=== PATIENT | female | born 1995 | race Two or more races ===

== ENCOUNTER 2025-01-25 16:45 | Emergency (ER) | payer MEDICAID, OTHER ==
[~2025-01-25] VITALS: Ht 152.4 cm; Wt 88.0 kg
--- NOTE | 2025-01-25 18:06 | ED.PDOC ---
HPI (NEURO) HPI Comments This is a 29 year old female presenting to the ED with chief complaint of headache. Patient reports that she has been experiencing a headache to the back of her head with associated nausea, vomiting, and eye pain since this morning. Patient relays that she was normal yesterday. Patient denies any abdominal pain, syncope, SOB, chest pain, dizziness, or fever. Chief Complaint: Nausea/Vomiting Time Seen by MD: 18:02 Primary Care Provider: [facility] Reviewed Notes: Nurses Notes, Medications, Allergies Information Source: Patient Mode of Arrival: Ambulatory Severity: Moderate Headache Severity: Moderate Timing: Hours Duration: Since onset Prehospital treatment: None Headache Quality: Aching Headache Location: Occipital Onset: At rest Circumstances: Spontaneous Associated Signs and Symptoms: Headache, Nausea, Vomiting Past Medical History PAST MEDICAL HISTORY: Denies Surgical History: Denies all surgeries GERMINATION TESTING MANAGER History: No Pertinent GERMINATION TESTING MANAGER History Family History Family History: Reviewed,noncontributory to illness Social History Smoker: Non-Smoker Alcohol: Denies ETOH Use Drugs: Denies Drug Use Lives In: Home Constitutional: denies: chills, diaphoresis, fatigue, fever, malaise, sweats, weakness, others EENTM: reports: eye pain; denies: blurred vision, double vision, ear bleeding, ear discharge, ear drainage, ear pain, ear ringing, eye redness, hearing loss, mouth pain, mouth swelling, nasal discharge, nose bleeding, nose congestion, nose pain, photophobia, tearing, throat pain, throat swelling, voice changes, others Respiratory: denies: cough, hemoptysis, orthopnea, SOB at rest, shortness of breath, SOB with excertion, stridor, wheezing, others Cardiovascular: denies: chest pain, dizzy spells, diaphoresis, Dyspnea on exertion, edema, irregular heart beat, left arm pain, lightheadedness, palpitations, PND, syncope, others Gastrointestinal: reports: nausea, vomiting; denies: abdomen distended, abdominal pain, blood streaked bowels, constipated, diarrhea, dysphagia, difficulty swallowing, hematemesis, melena, poor appetite, poor fluid intake, rectal bleeding, rectal pain, others Genitourinary: denies: abnormal vagina bleeding, burning, dyspareunia, dysuria, flank pain, frequency, hematuria, incontinence, pain, , vagina discharge, urgency, others Neurological: reports: headache; denies: dizziness, fainting, left sided numbness, left sided weakness, numbness, paresthesia, pre-existing deficit, right sided numbness, right sided weakness, seizure, speech problems, tingling, tremors, weakness, others Musculoskeletal: denies: back pain, gout, joint pain, joint swelling, muscle pain, muscle stiffness, neck pain, others Integumetry: denies: bruises, change in color, change in hair/nails, dryness, laceration, lesions, lumps, rash, wounds, others Allergic/Immunocompromised: denies: Difficulty Healing, Frequent Infections, Hives, Itching, others Hematologic/Lymphatic: denies: anemia, blood clots, easy bleeding, easy bruising, swollen glands, others Endocrine: denies: excessive hunger, excessive sweating, excessive thirst, excessive urination, flushing, intolerance to cold, intolerance to heat, unexplained weight gain, unexplained weight loss, others Psychiatric: denies: anxiety, bipolar disorder, depression, hopeless, panic disorder, schizophrenia, sleepless, suicidal, others All Other Systems: Reviewed and Negative Physical Exam General Appearance: Moderate Distress, Normal HEENT: Normal ENT Inspection, PERRL/EOMI, Other (Patient with ophthalmic migraine headache) Neck: Full Range of Motion, Non-Tender, Normal, Normal Inspection Respiratory: Chest Non-Tender, Lungs Clear, No Accessory Muscle Use, No Respiratory Distress, Normal Breath Sounds Cardiovascular: No Edema, No JVD, No Murmur, No Gallop, Normal Peripheral Pulses, Regular Rate/Rhythm Breast Exam: Deferred Gastrointestinal: No Organomegaly, Non Tender, No Pulsatile Mass, Normal Bowel Sounds, Soft Genitalia: Deferred Pelvic: Deferred Rectal: Deferred Extremities: No calf tenderness, Normal capillary refill, Normal inspection, Normal range of motion, Non-tender, No pedal edema Neurologic: Alert, warehouse incentive selector II-XII nml as Tested, Headache, No Motor Deficits, Normal Affect, Normal Mood, No Sensory Deficits Cerebellar Function: Normal Reflexes: Normal Skin: Dry, Normal Color, Warm Peripheral Pulses: 1+ carotid (R), 1+ carotid (L) Lymphatic: No Adenopathy Was a procedure done? Was a procedure done?: No Differential Diagnosis (SZ) Seizure: Mass Lesion CVA: Mass Lesion General Weakness: Dehydration, Electrolyte imbalance, Hypotension, Hypovolemia Headache: Migraine X-Ray, Labs, Meds, VS Vital Signs Date Time Temp Pulse Resp B/P (MAP) Pulse Ox O2 Delivery O2 Flow Rate FiO2 01/25/25 21:05 Room Air* 0 21 01/25/25 20:07 72 18 100 Room Air 01/25/25 19:55 98.2 72 18 138/94 (109) 100 98.2 01/25/25 17:15 98.3 65 18 141/61 (87) 100 98.3 Current Medications Medications (Trade) Dose Ordered Sig/Tabitha Route Start Time Stop Time Status Last Admin Ketorolac Tromethamine (Toradol Injection) 30 mg ONCE ONCE IV 01/25/25 18:00 01/25/25 18:01 DC 01/25/25 19:46 Metoclopramide HCl (Reglan Injection) 10 mg ONCE ONCE IV 01/25/25 18:00 01/25/25 18:01 DC 01/25/25 19:45 Sodium Chloride 1,000 ml @ 250 mls/hr Q4H ONCE IV 01/25/25 18:00 01/25/25 21:08 DC 01/25/25 19:44 X-Ray, Labs, Meds, VS Comment Patient came in with migraine headache After hydration and medication patient feels much better She will be discharged home to follow up with her PCP Time of 1ST Reevaluation: 19:02 Reevaluation 1ST: Unchanged Patient Education/Counseling: Diagnosis, Treatment Family Education/Counseling: No Family Present Departure 1 Departure Time of Disposition: 20:30 Impression: Primary Impression: Migraine headache without aura Qualified Codes: G43.009 - Migraine without aura, not intractable, without status migrainosus Disposition: 01 HOME / SELF CARE / HOMELESS Condition: Fair Additional Instructions: Go home and go to bed and right relax e-Prescriptions Acetaminophen (Acetaminophen Extra Stren) 500 Mg Tab 500 MG PO TID for 5 Days, #15 TAB Prov: TAYLOR WILSON MD 01/25/25 Metoclopramide Hcl (Reglan) 10 Mg Tab 10 MG PO BID for 5 Days, #10 TAB Prov: TAYLOR WILSON MD 01/25/25 Naproxen (Naproxen) 375 Mg Tab 375 MG PO TID for 5 Days, #15 TAB Prov: TAYLOR WILSON MD 01/25/25 Discharged With: Self Critical Care Note Critical Care Time?: No Stability Stability form required: No Heart Score Heart Score: Heart Score Response (Comments) Value History N/A 0 EKG N/A 0 Age <45 0 Risk Factors No known risk factors 0 Troponin N/A 0 Total 0 I personally scribed for TAYLOR WILSON MD ([email or web address]) on 01/25/25 at 18:06. Electronically submitted by Wali Mark ([email or web address]). TAYLOR WILSON MD Jan 25, 2025 18:06
--- NOTE | 2025-01-25 19:10 | DVH ---
CT HEAD WITHOUT CONTRAST INDICATION: Severe sudden headache EXAM DATE: 01/25/2025 06:20 PM COMPARISON: None RADIATION DOSE: CTDIvol: 53.99 mGy, DLP: 971.8 mGy*cm PROCEDURE: CT scans of the head were obtained from the vertex to the skull base. Sagittal and coronal reconstructions were provided. All CT scans at this medical facility are performed using dose modulation techniques as appropriate t o a performed exam including the following: Automated exposure control was utilized; adjustment of th e MA and/or KV according to patient size; and use of iterative reconstruction technique. FINDINGS: Evaluation is mildly degraded by motion artifact. The cerebral parenchyma appears to be normal configuration and attenuation. The ventricles, cisterns , and sulci appear age-appropriate. There is no evidence for acute territorial infarct, hemorrhage, or mass effect. The orbits are normal. The visualized paranasal sinuses and mastoid air cells are clear. Prior suboc cipital craniotomy. The soft tissues and osseous structures appear otherwise within normal limits. IMPRESSION: 1. No acute territorial infarct, intracranial hemorrhage, or mass effect. If clinical symptoms persis t, MRI may be beneficial in further evaluation.
[2025-01-25] MEDS: SODIUM CHLORIDE 0.9% 1,000 ML IV ONE (19:44)
[2025-01-25] MEDS: METOCLOPRAMIDE HCL 5MG/ml INJ 2ml VIAL IV ONE (19:45)
[2025-01-25] MEDS: KETOROLAC TROMETH 30 MG/ML 1ML VIAL IV ONE (19:46)
[2025-01-25 19:55] VITALS: BP 138/94; TEMP 98.2
[2025-01-25 20:07] VITALS: PULSE 72; RESP 18; O2SAT 100
[2025-01-25] MEDS ORDERED: ACET-6 PO (20:28)
[2025-01-25] MEDS ORDERED: NAPR-957 PO (20:28)
[2025-01-25] MEDS ORDERED: METO-281 PO (20:28)
== END 2025-01-25 21:07 | disposition home or self-care (01) ==
LOC: ER 16:45 → EEVIPCON 16:45 → ER 21:07
DX: G43.009 Migraine without aura, not intractable, without status migrainosus (principal)
CPT/HCPCS: 70450; 96361; 96374; 96375; 99285; J1885; J2765; J7030

== ENCOUNTER 2025-02-12 02:59 | Inpatient (IN) | payer MEDICAID ==
[~2025-02-12] VITALS: Ht 152.4 cm; Wt 89.0 kg
[~2025-02-12 02:59] MED LIST: ACET-6 PO; METO-281 PO; NAPR-957 PO
--- NOTE | 2025-02-12 03:54 | ED.PDOC ---
GI ASSESSMENT HPI Comments A 29 year-old female presents to the ED with a chief complaint of constant epigastric abdominal pain with associated N/D as of yesterday. Patient states abdominal pain was intermittent as of X2 months ago, but came to the ED upon constant and worsening symptoms. Patient states pain is exacerbated with eating, associated with R abdominal "burning" sensation, with no associated relieving factors. Patient reports coming to the ED 1 month ago for emesis of "acid" but states she was not given proper evaluation or treatment. Patient has no further complaints at this time and otherwise denies emesis, hematemesis, dysuria, dizziness, migraine, fever, or chills. Chief Complaint: Abdominal Pain Time Seen by MD: 03:20 Primary Care Provider: [facility] Reviewed Notes: Medications, Allergies Allergies: Coded Allergies: NO KNOWN ALLERGIES (Unverified , 02/12/25) Home Meds Active Scripts Sulfamethoxazole W/Trimethopri (Bactrim Ds Tablet) 1 Tab Tb, 1 TAB PO BID for 7 Days, #14 TAB Prov:LEANA ESTRADA MD 02/12/25 Dicyclomine Hcl (BENTYL CAPSULE) 10 Mg Cp, 1 CAP PO Q6HPRN for 60 Days, #100 CAP 3 Refills Prov:LEANA ESTRADA MD 02/12/25 Acetaminophen (Acetaminophen Extra Stren) 500 Mg Tab, 500 MG PO TID for 5 Days, #15 TAB Prov:TAYLOR WILSON MD 01/25/25 Metoclopramide Hcl (Reglan) 10 Mg Tab, 10 MG PO BID for 5 Days, #10 TAB Prov:TAYLOR WILSON MD 01/25/25 Naproxen (Naproxen) 375 Mg Tab, 375 MG PO TID for 5 Days, #15 TAB Prov:TAYLOR WILSON MD 01/25/25 Information Source: Patient Mode of Arrival: Ambulatory Timing: Days Duration: Since onset Quality: Burning Severity: Moderate Pain Location: Epigastric Associated sign and symptoms: Nausea, Diarrhea Past Medical History PAST MEDICAL HISTORY: Denies Surgical History: Denies all surgeries CARE CONSULTANT History: No Pertinent CARE CONSULTANT History Family History Family History: Reviewed,noncontributory to illness Social History Smoker: Non-Smoker Alcohol: Denies ETOH Use Drugs: Denies Drug Use Lives In: Home Constitutional: denies: chills, diaphoresis, fatigue, fever, malaise, sweats, weakness, others EENTM: denies: blurred vision, double vision, ear bleeding, ear discharge, ear drainage, ear pain, ear ringing, eye pain, eye redness, hearing loss, mouth pain, mouth swelling, nasal discharge, nose bleeding, nose congestion, nose pain, photophobia, tearing, throat pain, throat swelling, voice changes, others Respiratory: denies: cough, hemoptysis, orthopnea, SOB at rest, shortness of breath, SOB with excertion, stridor, wheezing, others Cardiovascular: denies: chest pain, dizzy spells, diaphoresis, Dyspnea on exertion, edema, irregular heart beat, left arm pain, lightheadedness, palpitations, PND, syncope, others Gastrointestinal: reports: abdominal pain, nausea, vomiting; denies: abdomen distended, blood streaked bowels, constipated, diarrhea, dysphagia, difficulty swallowing, hematemesis, melena, poor appetite, poor fluid intake, rectal bleeding, rectal pain, others Genitourinary: denies: abnormal vagina bleeding, burning, dyspareunia, dysuria, flank pain, frequency, hematuria, incontinence, pain, , vagina discharge, urgency, others Neurological: denies: dizziness, fainting, headache, left sided numbness, left sided weakness, numbness, paresthesia, pre-existing deficit, right sided numbness, right sided weakness, seizure, speech problems, tingling, tremors, weakness, others Musculoskeletal: denies: back pain, gout, joint pain, joint swelling, muscle pa in, muscle stiffness, neck pain, others Integumetry: denies: bruises, change in color, change in hair/nails, dryness, laceration, lesions, lumps, rash, wounds, others Allergic/Immunocompromised: denies: Difficulty Healing, Frequent Infections, Hives, Itching, others Hematologic/Lymphatic: denies: anemia, blood clots, easy bleeding, easy bruising, swollen glands, others Endocrine: denies: excessive hunger, excessive sweating, excessive thirst, excessive urination, flushing, intolerance to cold, intolerance to heat, unexplained weight gain, unexplained weight loss, others Psychiatric: denies: anxiety, bipolar disorder, depression, hopeless, panic disorder, schizophrenia, sleepless, suicidal, others All Other Systems: Reviewed and Negative Physical Exam General Appearance: Mild Distress, Obese HEENT: Normal ENT Inspection, Pharynx Normal, TMs Normal Neck: Full Range of Motion, Non-Tender, Normal, Normal Inspection Respiratory: Chest Non-Tender, Lungs Clear, No Accessory Muscle Use, No Respiratory Distress, Normal Breath Sounds Cardiovascular: No Edema, No JVD, No Murmur, No Gallop, Normal Peripheral Pulses, Regular Rate/Rhythm Breast Exam: Deferred Gastrointestinal: No Organomegaly, Non Tender, No Pulsatile Mass, Normal Bowel Sounds, Soft Genitalia: Deferred Pelvic: Deferred Rectal: Deferred Extremities: No calf tenderness, Normal capillary refill, Normal inspection, Normal range of motion, Non-tender, No pedal edema Musculoskeletal : Apperance: Normal Neurologic: Alert, trouble operator II-XII nml as Tested, No Motor Deficits, Normal Affect, Normal Mood, No Sensory Deficits Cerebellar Function: Normal Reflexes: Normal Skin: Dry, Normal Color, Warm Lymphatic: No Adenopathy Was a procedure done? Was a procedure done?: No GI differential Dx Differential Diagnosis: Constipation, Gastroenteritis, Inflammatory BD, UTI, Bacterial, Parasitic, Viral X-Ray, Labs, Meds, VS Vital Signs Date Time Temp Pulse Resp B/P (MAP) Pulse Ox O2 Delivery O2 Flow Rate FiO2 02/12/25 03:15 98.9 68 14 127/86 (100) 98 98.9 Lab Test 02/12/25 04:06 02/12/25 03:44 Range/Units Urine Color Yellow Yellow Urine Clarity Clear Clear Urine pH 6.0 5.0-9.0 Urine Specific [place] 1.026 1.001-1.035 Urine Protein Negative Negative Urine Ketones Negative Negative Urine Blood 3+ H Negative /uL Urine Nitrite Negative Negative Urine Bilirubin Negative Negative Urine Urobilinogen Normal Negative mg/dL Urine Leukocyte Esterase 1+ Negative /uL Urine RBC 50 0 - 4 /hpf Urine Microscopic WBC 3 0-5 /HPF Urine Squamous Epithelial Cells Few <5 /hpf Urine Bacteria None seen None Seen /hpf Urine Mucus Few None Seen Urine Glucose Normal Normal mg/dL Urine Test Negative Negative White Blood Count 7.7 4.4-10.8 10^3/uL Red Blood Count 4.80 4.0-5.20 10^6/uL Hemoglobin 13.6 12.2-16.2 g/dL Hematocrit 40.0 36.0-46.0 % Mean Corpuscular Volume 83.3 80.0-100.0 fL Mean Corpuscular Hemoglobin 28.2 28.0-32.0 pg Mean Corpuscular Hemoglobin Concent 33.9 32.0-36.0 g/dL Red Cell Distribution Width 13.4 11.8-14.3 % Platelet Count 225 140-450 10^3/uL Mean Platelet Volume 9.8 6.9-10.8 fL Neutrophils (%) (Auto) 61.9 37.0-80.0 % Lymphocytes (%) (Auto) 31.2 10.0-50.0 % Monocytes (%) (Auto) 4.7 0.0-12.0 % Eosinophils (%) (Auto) 1.7 0.0-7.0 % Basophils (%) (Auto) 0.5 0.0-2.0 % Neutrophils # (Auto) 4.8 1.6-8.6 10 ^3/uL Lymphocytes # (Auto) 2.4 0.4-5.4 10 ^3/uL Monocytes # (Auto) 0.4 0-1.3 10 ^3/uL Eosinophils # (Auto) 0.1 0-0.8 10 ^3/uL Basophils # (Auto) 0 0-0.2 10 ^3/uL Nucleated Red Blood Cells 0.0 % Sodium Level 141 136-145 mmol/L Potassium Level 4.0 3.5-5.1 mmol/L Chloride Level 105 98-107 mmol/L Carbon Dioxide Level 27 20-31 mmol/L Anion Gap 9 5-15 Blood Urea Nitrogen 11 9-23 mg/dL Creatinine 0.55 0.550-1.02 mg/dL Glomerular Filtration Rate Calc 126 >90 mL/min BUN/Creatinine Ratio 20.0 10.0-20.0 Serum Glucose 94 74-106 mg/dL Calcium Level 9.1 8.7-10.4 mg/dL Total Bilirubin 0.4 0.2-1.0 mg/dL Aspartate Amino Transferase (AST) 21 13-40 U/L Alanine Aminotransferase (ALT) 52 H 7-40 U/L Alkaline Phosphatase 97 46-116 U/L Total Protein 7.3 5.7-8.2 g/dL Albumin 4.3 3.2-4.8 g/dL Lipase 33 12-53 U/L [facility] [address] [facility] [address] Ph: [phone] DIAGNOSTIC IMAGING Diagnostic Imaging Report : [id number] Signed PATIENT: WEN GOTTLIEB ACCT: [id number] UNIT: [id number] : 1995 LOC: ER ROOM / BED: / AGE / SEX: 29 / F ADM STATUS: REG ER SERVICE [id number] ORDERING PHYSICIAN: LEANA ESTRADA MD PROCEDURE(s): GBUS - GALLBLADDER REASON: RUQ pain ORDER NUMBER(s): [id number], ACCESSION NUMBER(s): [id number] INDICATION: RUQ pain TECHNIQUE: Real time ultrasonography of the right upper quadrant was performed. COMPARISON: None FINDINGS: The liver appears echogenic. There is a large gallstone within the gallbladder without pericholecystic fluid or gallbladder wall thickening. Common bile duct estimated 0.5 cm. The visualized pancreas, , right kidney, intrahepatic IVC and abdominal aorta appears unremarkable. IMPRESSION: 1. Cholelithiasis without wall thickening or pericholecystic fluid. 2. Echogenic appearance of the liver suggests fibrofatty hepatocellular disease, most commonly hepatic steatosis. Time of 1ST Reevaluation: 03:52 Reevaluation 1ST: Unchanged Patient Education/Counseling: Diagnosis, Treatment Family Education/Counseling: No Family Present SEPSIS Sepsis Screen Date sepsis recognized/suspect: Feb 12, 2025 Time Sepsis recognized/suspect: 314 Recent Procedure: No On Antibiotic Therapy: No Respiratory Rate >20: No Heart Rate >90: No Temp<36 C (96.8 F) or >38.3 C: No SBP <90 or MAP <65 mmHG: No New Acute Mental Status Change: No Is the patient on CPAP, BIPAP,: No Physician Orders Gallbladder (02/12/25 03:33) Vital Signs Date Time Temp Pulse Resp B/P (MAP) Pulse Ox O2 Delivery O2 Flow Rate FiO2 02/12/25 03:15 98.9 68 14 127/86 (100) 98 98.9 Laboratory Tests Test 02/12/25 03:44 White Blood Count 7.7 10^3/uL (4.4-10.8) Departure 1 Departure Time of Disposition: 05:59 Impression: Primary Impression: Cholecystitis Additional Impression: Urinary tract infection Disposition: 09 ADMITTED INPATIENT Condition: Guarded e-Prescriptions Sulfamethoxazole W/Trimethopri (Bactrim Ds Tablet) 1 Tab Tb 1 TAB PO BID for 7 Days, #14 TAB Prov: LEANA ESTRADA MD 02/12/25 Dicyclomine Hcl (BENTYL CAPSULE) 10 Mg Cp 1 CAP PO Q6HPRN for 60 Days, #100 CAP 3 Refills Prov: LEANA ESTRADA MD 02/12/25 Discharged With: Self Critical Care Note Critical Care Time?: No Stability Stability form required: No Heart Score Heart Score: Heart Score Response (Comments) Value History N/A 0 EKG N/A 0 Age N/A 0 Risk Factors N/A 0 Troponin N/A 0 Total 0 I personally scribed for LEANA ESTRADA MD ([email or web address]) on 02/12/25 at 03:54. Electronically submitted by Ivis Aranda (Topmission). I personally scribed for LEANA ESTRADA MD ([email or web address]) on 02/12/25 at 05:29. Electronically submitted by Ivis Aranda ([email or web address]). LEANA ESTRADA MD Feb 12, 2025 03:54
[2025-02-12 04:02] LABS: Hematocrit 40.0 % (36.0-46.0); Hemoglobin 13.6 g/dL (12.2-16.2); Mean Corpuscular Hemoglobin 28.2 pg (28.0-32.0); Mean Corpuscular Volume 83.3 fL (80.0-100.0); Nucleated Red Blood Cells % 0.0 %
[2025-02-12 04:19] LABS: Alanine Aminotransferase 52 U/L (7-40); Albumin 4.3 g/dL (3.2-4.8); Alkaline Phosphatase 97 U/L (46-116); Anion Gap 9 (5-15); BUN/Creatinine Ratio 20.0 (10.0-20.0); Blood Urea Nitrogen 11 mg/dL (9-23); Calcium 9.1 mg/dL (8.7-10.4); Carbon Dioxide 27 mmol/L (20-31); Chloride 105 mmol/L (98-107); Glucose 94 mg/dL (74-106); Lipase 33 U/L (12-53); Potassium 4.0 mmol/L (3.5-5.1); Sodium 141 mmol/L (136-145); Total Protein 7.3 g/dL (5.7-8.2)
[2025-02-12 04:20] LABS: Bilirubin, Total 0.4 mg/dL (0.2-1.0)
[2025-02-12 04:28] LABS: Urine Protein, UAD Negative (Negative)
--- NOTE | 2025-02-12 04:52 | DVH ---
INDICATION: RUQ pain TECHNIQUE: Real time ultrasonography of the right upper quadrant was performed. COMPARISON: None FINDINGS: The liver appears echogenic. There is a large gallstone within the gallbladder without pericholecysti c fluid or gallbladder wall thickening. Common bile duct estimated 0.5 cm. The visualized pancreas, , right kidney, intrahepatic IVC and abdominal aorta appears unremark able. IMPRESSION: 1. Cholelithiasis without wall thickening or pericholecystic fluid. 2. Echogenic appearance of the liver suggests fibrofatty hepatocellular disease, most commonly hepati c steatosis.
[2025-02-12] MEDS ORDERED: DICY10CA PO (05:51)
[2025-02-12] MEDS ORDERED: BACDST PO (05:51)
--- NOTE | 2025-02-12 06:07 | DVHHP2 ---
History of Present Illness Reason for Visit: Acute abdominal pain History of Present Illness The patient is a 29-year-old female who denies past medical history presented to [facility] ED with complaint of abdominal pain. Patient reports symptoms progressively get worse with constant epigastric abdominal pain, inter mittent for the past 2 months, rating 7/10 numeric scale, associated with nausea, vomiting, getting worse today that prompted this visit. Patient was seen and evaluated in the ED, laboratory data shows WBC 7.7, platelets 225, sodium 141, potassium 4.0, BUN 11, creatinine 0.55, glucose 94, calcium 9.1, lipase 33, AST 21, ALT 52, blood pressure 127/86, heart rate 68, temperature 98.9 F, O2 saturation 98% on room air. Gallbladder ultrasound revealing cholelithiasis without wall thickening or pericholecystic fluid, echogenic appearance of the liver suggest fibrofatty hepatocellular disease, most commonly hepatic steatosis. Please see medication orders section in the computer. On my assessment, patient denied chest pain, no headache, no dizziness, no shortness of breaths, no abdominal pain, nausea or vomiting at this moment, no fever, no chills. Patient was admitted for further evaluation and medical management. Past Medical History Denies past medical history Past Surgical History Denies all surgeries Family History Reviewed, noncontributory to the management of this case. Past Social History The patient lives at home, denies smoking, alcohol or illicit drugs abuse. Review of Systems Constitutional: No: Fever, Chills, Sweats, Weakness, Malaise, Other Eyes: No: Pain, Vision change, Conjunctivae inflammation, Eyelid inflammation, Other, Redness ENT: No: Ear pain, Ear discharge, Nose pain, Nose discharge, Nose congestion, Mouth pain, Mouth swelling, Throat pain, Throat swelling, Other Respiratory: No: Cough, Dry, Shortness of breath, SOB with excertion, Wheezing, Hemoptysis, Pleuritic Pain, Sputum, Wheezing, Other Cardiovascular: No: Chest Pain, Palpitations, Orthopnea, Paroxysmal Noc. Dyspnea, Edema, Lt Headedness, Other Gastrointestinal: Nausea, Vomiting, Abdominal Pain; No: Diarrhea, Constipation, Melena, Hematochezia, Other Genitourinary: No Dysuria, No Frequency, No Incontinence, No Hematuria, No Retention, No Other Musculoskeletal: No: other, neck pain, shoulder pain, arm pain, back pain, hand pain, leg pain, foot pain Skin: No: Rash, Lesions, Jaundice, Bruising, Other Neurological: No: Weakness, Numbness, Incoordination, Change in speech, Confusion, Seizures, Other Allergies: Coded Allergies: NO KNOWN ALLERGIES (Unverified , 02/12/25) Exam Vital Signs Vital Signs Date Time Temp Pulse Resp B/P (MAP) Pulse Ox O2 Delivery O2 Flow Rate FiO2 02/12/25 03:15 98.9 68 14 127/86 (100) 98 98.9 General Appearance: Alert, Oriented X3, Cooperative, No acute distress HEENT: Atraumatic, PERRLA, EOMI, Mucous membr. moist/pink Respiratory: Clear to auscultation, Normal air movement Cardiovascular: Regular rate, Normal S1, Normal S2, No murmurs Abdominal: Normal bowel sounds, Soft, No tenderness, No hepatospenomegaly, No masses Extremities: No clubbing, No cyanosis, No edema, Normal pulses, No tenderness /swelling Skin: No rashes, No breakdown, No significant lesion Neuro: Normal gait, Normal speech, Strength at 5/5 X4 ext, Normal tone, Sensation intact, Cranial nerves 3-12 NL, Reflexes 2+ Psych/Mental Status: Mental status NL, Mood NL Labs/Xrays Labs Test 02/12/25 04:06 02/12/25 03:44 Range/Units Urine Color Yellow Yellow Urine Clarity Clear Clear Urine pH 6.0 5.0-9.0 Urine Specific [place] 1.026 1.001-1.035 Urine Protein Negative Negative Urine Ketones Negative Negative Urine Blood 3+ H Negative /uL Urine Nitrite Negative Negative Urine Bilirubin Negative Negative Urine Urobilinogen Normal Negative mg/dL Urine Leukocyte Esterase 1+ Negative /uL Urine RBC 50 0 - 4 /hpf Urine Microscopic WBC 3 0-5 /HPF Urine Squamous Epithelial Cells Few <5 /hpf Urine Bacteria None seen None Seen /hpf Urine Mucus Few None Seen Urine Glucose Normal Normal mg/dL Urine Test Negative Negative White Blood Count 7.7 4.4-10.8 10^3/uL Red Blood Count 4.80 4.0-5.20 10^6/uL Hemoglobin 13.6 12.2-16.2 g/dL Hematocrit 40.0 36.0-46.0 % Mean Corpuscular Volume 83.3 80.0-100.0 fL Mean Corpuscular Hemoglobin 28.2 28.0-32.0 pg Mean Corpuscular Hemoglobin Concent 33.9 32.0-36.0 g/dL Red Cell Distribution Width 13.4 11.8-14.3 % Platelet Count 225 140-450 10^3/uL Mean Platelet Volume 9.8 6.9-10.8 fL Neutrophils (%) (Auto) 61.9 37.0-80.0 % Lymphocytes (%) (Auto) 31.2 10.0-50.0 % Monocytes (%) (Auto) 4.7 0.0-12.0 % Eosinophils (%) (Auto) 1.7 0.0-7.0 % Basophils (%) (Auto) 0.5 0.0-2.0 % Neutrophils # (Auto) 4.8 1.6-8.6 10 ^3/uL Lymphocytes # (Auto) 2.4 0.4-5.4 10 ^3/uL Monocytes # (Auto) 0.4 0-1.3 10 ^3/uL Eosinophils # (Auto) 0.1 0-0.8 10 ^3/uL Basophils # (Auto) 0 0-0.2 10 ^3/uL Nucleated Red Blood Cells 0.0 % Sodium Level 141 136-145 mmol/L Potassium Level 4.0 3.5-5.1 mmol/L Chloride Level 105 98-107 mmol/L Carbon Dioxide Level 27 20-31 mmol/L Anion Gap 9 5-15 Blood Urea Nitrogen 11 9-23 mg/dL Creatinine 0.55 0.550-1.02 mg/dL Glomerular Filtration Rate Calc 126 >90 mL/min BUN/Creatinine Ratio 20.0 10.0-20.0 Serum Glucose 94 74-106 mg/dL Calcium Level 9.1 8.7-10.4 mg/dL Total Bilirubin 0.4 0.2-1.0 mg/dL Aspartate Amino Transferase (AST) 21 13-40 U/L Alanine Aminotransferase (ALT) 52 H 7-40 U/L Alkaline Phosphatase 97 46-116 U/L Total Protein 7.3 5.7-8.2 g/dL Albumin 4.3 3.2-4.8 g/dL Lipase 33 12-53 U/L PATIENT: WEN GOTTLIEB ACCT: [id number] UNIT: [id number] : 1995 LOC: ER ROOM / BED: / AGE / SEX: 29 / F ADM STATUS: REG ER SERVICE [id number] ORDERING PHYSICIAN: LEANA ESTRADA MD PROCEDURE(s): GBUS - GALLBLADDER REASON: RUQ pain ORDER NUMBER(s): [id number], ACCESSION NUMBER(s): [id number] INDICATION: RUQ pain TECHNIQUE: Real time ultrasonography of the right upper quadrant was performed. COMPARISON: None FINDINGS: The liver appears echogenic. There is a large gallstone within the gallbladder without pericholecystic fluid or gallbladder wall thickening. Common bile duct estimated 0.5 cm. The visualized pancreas, , right kidney, intrahepatic IVC and abdominal aorta appears unremarkable. IMPRESSION: 1. Cholelithiasis without wall thickening or pericholecystic fluid. 2. Echogenic appearance of the liver suggests fibrofatty hepatocellular disease, most commonly hepatic steatosis. SEPSIS Sepsis Screen Date sepsis recognized/suspect: Feb 12, 2025 Time Sepsis recognized/suspect: 314 Recent Procedure: No On Antibiotic Therapy: No Respiratory Rate >20: No Heart Rate >90: No Temp<36 C (96.8 F) or >38.3 C: No SBP <90 or MAP <65 mmHG: No New Acute Mental Status Change: No Is the patient on CPAP, BIPAP,: No Physician Orders Gallbladder (02/12/25 03:33) Sodium Chloride 0.9% (02/12/25 06:00) Piperacillin-Tazob 3.375gm (Zosyn 3.375g (02/12/25 06:00) Vital Signs Date Time Temp Pulse Resp B/P (MAP) Pulse Ox O2 Delivery O2 Flow Rate FiO2 02/12/25 03:15 98.9 68 14 127/86 (100) 98 98.9 Laboratory Tests Test 02/12/25 03:44 White Blood Count 7.7 10^3/uL (4.4-10.8) Assessment/Plan Assessment/Plan Cholelithiasis Urinary tract infection Acute abdominal pain Intractable nausea and vomiting Plan 1. Admit to med surge unit 2. Breathing treatment 3. Pain control management 4. IV antibiotic management 5. Management of fluids and electrolytes 6. Consultation for hospitalist 7. Diagnostic test gallbladder ultrasound 8. DVT prophylaxis on SCDs 9. Repeat labs CBC, CMP in a.m. 10. Continue with current medical management 11. Treatment plan discussed with patient and RN. Patient verbalized understanding. Plan discussed with: Patient, Other (RN) Problem List: (1) Cholelithiasis (2) Urinary tract infection (3) Acute abdominal pain (4) Intractable nausea and vomiting Date of Service: Feb 12, 2025 Billing Provider: SATYA ARROYO DNP Common Visit Codes: [id number] INP/OBS CARE (HIGH) SATYA ARROYO DNP Feb 12, 2025 06:07
[2025-02-12] MEDS ORDERED: NITROGLYCERIN 0.4 MG SL TAB SL PRN (06:15)
[2025-02-12] MEDS ORDERED: ACETAMINOPHEN 325 MG TAB PO PRN (06:15)
[2025-02-12] MEDS ORDERED: MORPHINE SULFATE INJ 2 MG/ml SYRG IV PRN (06:15)
[2025-02-12] MEDS ORDERED: DOCUSATE SOD 100 MG CAP PO PRN (06:15)
[2025-02-12 06:25] VITALS: PULSE 65; RESP 14; O2SAT 100
[2025-02-12] MEDS: PANTOPRAZOLE 40 MG/10 ML VIAL INJ IV ONE (06:33)
[2025-02-12] MEDS: SODIUM CHLORIDE 0.9% 1,000 ML IV ONE (06:33)
[2025-02-12] MEDS: PIPERACILLIN-TAZOB 3.375GM 100 ML IV ONE (06:34)
[2025-02-12 07:08] LABS: Chloride 105 mmol/L (98-107); Sodium 139 mmol/L (136-145)
[2025-02-12 07:09] LABS: Anion Gap 7 (5-15); Calcium 9.4 mg/dL (8.7-10.4); Carbon Dioxide 27 mmol/L (20-31)
[2025-02-12 07:12] LABS: Hematocrit 39.4 % (36.0-46.0); Hemoglobin 13.3 g/dL (12.2-16.2); Mean Corpuscular Hemoglobin 28.3 pg (28.0-32.0); Mean Corpuscular Volume 83.6 fL (80.0-100.0); Nucleated Red Blood Cells % 0.1 %
[2025-02-12 07:14] LABS: Glucose 89 mg/dL (74-106)
[2025-02-12 07:30] VITALS: PULSE 75; RESP 18; O2SAT 98
[2025-02-12 07:31] LABS: BUN/Creatinine Ratio 16.1 (10.0-20.0); Blood Urea Nitrogen 10 mg/dL (9-23); Potassium 4.8 mmol/L (3.5-5.1)
[2025-02-12] MEDS: cefTRIAXone 1GM/50ML D5W 50 ML IV ONE (09:49)
[2025-02-12] MEDS: HYDROcodone-ACET 5/325MG TAB PO PRN (11:39)
[2025-02-12 11:49] VITALS: BP 132/92; PULSE 71; RESP 18; TEMP 97.7; O2SAT 99
[2025-02-12] MEDS: SODIUM CHLOR 0.9% PF (SALINE LOCK) 10ML VIAL/SYR IV SCH (14:04)
--- NOTE | 2025-02-12 15:21 | DVHPN2 ---
Subjective 29-year-old female with a no significant past medical history presented to the hospital with a epigastric abdominal pain as well as nausea found to have symptomatic cholelithiasis. Patient is still complaining of nausea. Reviewed: Care Plan Changes from previous H/P or p: No Changes Eyes: No Pain, No Vision change, No Conjunctivae inflammation, No Eyelid inflammation, No Other, No Redness ENT: No Ear pain, No Ear discharge, No Nose pain, No Nose discharge, No Nose congestion, No Mouth pain, No Mouth swelling, No Throat pain, No Throat swelling, No Other Cardiovascular: No Chest Pain, No Palpitations, No Orthopnea, No Paroxysmal Noc. Dyspnea, No Edema, No Lt Headedness, No Other Respiratory: No Cough, No Dry, No Shortness of breath, No SOB with excertion, No Wheezing, No Hemoptysis, No Pleuritic Pain, No Sputum, No Other Gastrointestinal: Nausea, Vomiting, Abdominal Pain; No Diarrhea, No Constipation, No Melena, No Hematochezia, No Other Genitourinary: No Dysuria, No Frequency, No Incontinence, No Hematuria, No Retention, No Other Musculoskeletal: No other, No neck pain, No shoulder pain, No arm pain, No back pain, No hand pain, No leg pain, No foot pain Skin: No Rash, No Lesions, No Jaundice, No Bruising, No Other Objective Vitals Vital Signs Date Time Temp Pulse Resp B/P (MAP) Pulse Ox O2 Delivery O2 Flow Rate FiO2 02/12/25 11:49 97.7 71 18 132/92 (105) 99 97.7 02/12/25 11:33 Room Air* 0 21 Intake/Output HEENT pupils are reactive Neck is supple CV is S1-S2 regular rate and rhythm Respiratory diminished breath sounds bases GI positive bowel sounds soft , nondistended, mildly tender in epigastric and right upper quadrant with a minimal guarding no rigidity Extremities no pedal 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 Medications Current Medications Medications Dose Ordered Sig/Tabitha Route Start Time Stop Time Status Last Admin Dose Admin Pantoprazole Sodium 40 mg DAILY IV 02/13/25 10:00 Sodium Chloride 10 ml Q8HR IV 02/12/25 14:00 02/12/25 14:04 10 ML Acetaminophen/ Hydrocodone Bitart 1 tab Q4HP PRN PO 02/12/25 06:15 02/12/25 11:39 1 TAB Ondansetron HCl 4 mg Q4HP PRN IV 02/12/25 06:15 Docusate Sodium 100 mg BIDPRN PRN PO 02/12/25 06:15 Acetaminophen 650 mg Q6HP PRN PO 02/12/25 06:15 Morphine Sulfate 2 mg Q4HPRN PRN IV 02/12/25 06:15 Nitroglycerin 0.4 mg Q5MINP PRN SL 02/12/25 06:15 Morphine Sulfate 2 mg Q30M PRN IV 02/12/25 06:15 Ceftriaxone Sodium 50 ml @ 100 mls/hr DAILY@09 IV 02/13/25 09:00 Laboratory Results Laboratory Tests 02/12/25 06:14 02/12/25 07:00 Chemistry Test 02/12/25 03:44 02/12/25 07:00 Albumin 4.3 g/dL (3.2-4.8) Calcium Level 9.1 mg/dL (8.7-10.4) 9.4 mg/dL (8.7-10.4) Total Protein 7.3 g/dL (5.7-8.2) Lipid panel Test 02/12/25 03:44 Lipase 33 U/L (12-53) LFT Test 02/12/25 03:44 Alanine Aminotransferase (ALT) 52 U/L (7-40) H Alkaline Phosphatase 97 U/L (46-116) Aspartate Amino Transferase (AST) 21 U/L (13-40) Total Bilirubin 0.4 mg/dL (0.2-1.0) Urinalysis Test 02/12/25 04:06 Urine Color Yellow (Yellow) Urine Clarity Clear (Clear) Urine pH 6.0 (5.0-9.0) Urine Specific [place] 1.026 (1.001-1.035) Urine Protein Negative (Negative) Urine Ketones Negative (Negative) Urine Blood 3+ /uL (Negative) H Urine Nitrite Negative (Negative) Urine Bilirubin Negative (Negative) Urine Urobilinogen Normal mg/dL (Negative) Urine Leukocyte Esterase 1+ /uL (Negative) Urine RBC 50 /hpf (0 - 4) Urine Microscopic WBC 3 /HPF (0-5) Urine Squamous Epithelial Cells Few /hpf (<5) Urine Bacteria None seen /hpf (None Seen) Urine Mucus Few (None Seen) Urine Glucose Normal mg/dL (Normal) Urine Test Negative (Negative) Assessment/Plan Assessment/Plan 29-year-old female with a no significant past medical history presented to the hospital with the abdominal pain nausea found to have 1. Abdominal pain with the nausea suspect symptomatic cholelithiasis 2. Symptomatic cholelithiasis 3. Hepatic steatosis 4. Morbid obesity classII -clear liquid diet as tolerated, surgical consultation. 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
[2025-02-12] MEDS: ONDANSETRON HCL 4 MG/2 ML VIAL IV PRN (15:22)
[2025-02-12 16:26] VITALS: BP 122/79; PULSE 54; RESP 16; TEMP 97.6; O2SAT 98
--- NOTE | 2025-02-12 16:32 | DVHINCON2 ---
Date of service: Feb 12, 2025 History of Present Illness 29-year-old female complaining of intermittent epigastric abdominal pain for past several months that became worse two days ago associated with nausea. Geoffrey noriega denies any fevers or chills. Past Medical History None Past Surgical History Back surgery for scoliosis Family History: Diabetes mellitus G8 MOTHER G8 FATHER Hypercholesterolemia G8 FATHER Hypertension G8 FATHER Family History Noncontributory Social History No alcohol, tobacco, IV drug use Allergies: Coded Allergies: NO KNOWN ALLERGIES (Unverified , 02/12/25) Home Meds Active Scripts Sulfamethoxazole W/Trimethopri (Bactrim Ds Tablet) 1 Tab Tb, 1 TAB PO BID for 7 Days, #14 TAB Prov:LEANA ESTRADA MD 02/12/25 Dicyclomine Hcl (BENTYL CAPSULE) 10 Mg Cp, 1 CAP PO Q6HPRN for 60 Days, #100 CAP 3 Refills Prov:LEANA ESTRADA MD 02/12/25 Acetaminophen (Acetaminophen Extra Stren) 500 Mg Tab, 500 MG PO TID for 5 Days, #15 TAB Prov:TAYLOR WILSON MD 01/25/25 Metoclopramide Hcl (Reglan) 10 Mg Tab, 10 MG PO BID for 5 Days, #10 TAB Prov:TAYLOR WILSON MD 01/25/25 Naproxen (Naproxen) 375 Mg Tab, 375 MG PO TID for 5 Days, #15 TAB Prov:TAYLOR WILSON MD 01/25/25 Current Medications Current Medications Medications (Trade) Dose Ordered Sig/Tabitha Route PRN Reason Start Time Stop Time Status Last Admin Pantoprazole Sodium (Protonix) 40 mg DAILY IV 02/13/25 10:00 Sodium Chloride (Saline Lock Ns) 10 ml Q8HR IV 02/12/25 14:00 02/12/25 14:04 Acetaminophen/ Hydrocodone Bitart ([place] 5/325MG Tab) 1 tab Q4HP PRN PO MODERATE PAIN (4-6 PAIN SCALE) 02/12/25 06:15 02/12/25 11:39 Ondansetron HCl (Zofran) 4 mg Q4HP PRN IV NAUSEA / VOMITING 02/12/25 06:15 02/12/25 15:22 Docusate Sodium (Colace Capsule) 100 mg BIDPRN PRN PO FOR CONSTIPATION 02/12/25 06:15 Acetaminophen (Tylenol Tablet) 650 mg Q6HP PRN PO PAIN SCALE 1-3 OR TEMP>100.4 02/12/25 06:15 Morphine Sulfate 2 mg Q4HPRN PRN IV SEVERE PAIN (7-10 PAIN SCALE) 02/12/25 06:15 Nitroglycerin (Ntrostat Sublingual) 0.4 mg Q5MINP PRN SL FOR CHEST PAIN 02/12/25 06:15 Morphine Sulfate 2 mg Q30M PRN IV FOR CHEST PAIN 02/12/25 06:15 Ceftriaxone Sodium 50 ml @ 100 mls/hr DAILY@09 IV 02/13/25 09:00 Vital Signs Vital Signs Date Time Temp Pulse Resp B/P (MAP) Pulse Ox O2 Delivery O2 Flow Rate FiO2 02/12/25 16:26 97.6 54 16 122/79 (93) 98 97.6 02/12/25 11:33 Room Air* 0 21 Physical Exam GEN: Age-appropriate female in no acute distress. Alert. HEENT: Normocephalic atraumatic. Moist mucous membranes. Anicteric sclerae. CV: RRR Respiratory: CTAB ABD: Minimal epigastric tenderness to palpation without guarding or rebound. Nondistended. Abdominal ultrasound: Cholelithiasis without wall thickening or pericholecystic fluid. Common bile duct is 0.5 cm. Labs/Diagnostic Data Labs Test 02/12/25 07:00 02/12/25 06:14 02/12/25 04:06 02/12/25 03:44 Range/Units Sodium Level 139 136-145 mmol/L Potassium Level 4.8 3.5-5.1 mmol/L Chloride Level 105 98-107 mmol/L Carbon Dioxide Level 27 20-31 mmol/L Anion Gap 7 5-15 Blood Urea Nitrogen 10 9-23 mg/dL Creatinine 0.62 0.550-1.02 mg/dL Glomerular Filtration Rate Calc 122 >90 mL/min BUN/Creatinine Ratio 16.1 10.0-20.0 Serum Glucose 89 74-106 mg/dL Calcium Level 9.4 8.7-10.4 mg/dL White Blood Count 9.3 4.4-10.8 10^3/uL Red Blood Count 4.71 4.0-5.20 10^6/uL Hemoglobin 13.3 12.2-16.2 g/dL Hematocrit 39.4 36.0-46.0 % Mean Corpuscular Volume 83.6 80.0-100.0 fL Mean Corpuscular Hemoglobin 28.3 28.0-32.0 pg Mean Corpuscular Hemoglobin Concent 33.9 32.0-36.0 g/dL Red Cell Distribution Width 14.0 11.8-14.3 % Platelet Count 219 140-450 10^3/uL Mean Platelet Volume 10.3 6.9-10.8 fL Neutrophils (%) (Auto) 61.3 37.0-80.0 % Lymphocytes (%) (Auto) 31.7 10.0-50.0 % Monocytes (%) (Auto) 4.9 0.0-12.0 % Eosinophils (%) (Auto) 1.7 0.0-7.0 % Basophils (%) (Auto) 0.4 0.0-2.0 % Neutrophils # (Auto) 5.7 1.6-8.6 10 ^3/uL Lymphocytes # (Auto) 2.9 0.4-5.4 10 ^3/uL Monocytes # (Auto) 0.5 0-1.3 10 ^3/uL Eosinophils # (Auto) 0.2 0-0.8 10 ^3/uL Basophils # (Auto) 0 0-0.2 10 ^3/uL Nucleated Red Blood Cells 0.1 % Urine Color Yellow Yellow Urine Clarity Clear Clear Urine pH 6.0 5.0-9.0 Urine Specific [place] 1.026 1.001-1.035 Urine Protein Negative Negative Urine Ketones Negative Negative Urine Blood 3+ H Negative /uL Urine Nitrite Negative Negative Urine Bilirubin Negative Negative Urine Urobilinogen Normal Negative mg/dL Urine Leukocyte Esterase 1+ Negative /uL Urine RBC 50 0 - 4 /hpf Urine Microscopic WBC 3 0-5 /HPF Urine Squamous Epithelial Cells Few <5 /hpf Urine Bacteria None seen None Seen /hpf Urine Mucus Few None Seen Urine Glucose Normal Normal mg/dL Urine Test Negative Negative Total Bilirubin 0.4 0.2-1.0 mg/dL Aspartate Amino Transferase (AST) 21 13-40 U/L Alanine Aminotransferase (ALT) 52 H 7-40 U/L Alkaline Phosphatase 97 46-116 U/L Total Protein 7.3 5.7-8.2 g/dL Albumin 4.3 3.2-4.8 g/dL Lipase 33 12-53 U/L Assessment 1. Cholelithiasis with possible chronic cholecystitis Plan/Recommendation 1. HIDA scan. If it is positive we will proceed with the cholecystectomy. Plan discussed with: Patient, Spouse ADRIAN MENDOZA MD Feb 12, 2025 16:32
[2025-02-12 20:00] VITALS: PULSE 68; RESP 19; O2SAT 97
--- NOTE | 2025-02-12 20:36 | DVHINCON2 ---
Date of service: Feb 12, [address] Ellis History of Present Illness 29 y/o F pt with PMH of admitted with abd pain. She reports epigastric pain, associated with N/V with oral intake, has some GERD. No GIB/diarrhea Past Medical History Reviewed Past Surgical History Reviewed Family History: Diabetes mellitus G8 MOTHER G8 FATHER Hypercholesterolemia G8 FATHER Hypertension G8 FATHER Allergies: Coded Allergies: NO KNOWN ALLERGIES (Unverified , 02/12/25) Home Meds Active Scripts Sulfamethoxazole W/Trimethopri (Bactrim Ds Tablet) 1 Tab Tb, 1 TAB PO BID for 7 Days, #14 TAB Prov:LEANA ESTRADA MD 02/12/25 Dicyclomine Hcl (BENTYL CAPSULE) 10 Mg Cp, 1 CAP PO Q6HPRN for 60 Days, #100 CAP 3 Refills Prov:LEANA ESTRADA MD 02/12/25 Acetaminophen (Acetaminophen Extra Stren) 500 Mg Tab, 500 MG PO TID for 5 Days, #15 TAB Prov:TAYLOR WILSON MD 01/25/25 Metoclopramide Hcl (Reglan) 10 Mg Tab, 10 MG PO BID for 5 Days, #10 TAB Prov:TAYLOR WILSON MD 01/25/25 Naproxen (Naproxen) 375 Mg Tab, 375 MG PO TID for 5 Days, #15 TAB Prov:TAYLOR WILSON MD 01/25/25 Current Medications Current Medications Medications (Trade) Dose Ordered Sig/Tabitha Route PRN Reason Start Time Stop Time Status Last Admin Pantoprazole Sodium (Protonix) 40 mg DAILY IV 02/13/25 10:00 Sodium Chloride (Saline Lock Ns) 10 ml Q8HR IV 02/12/25 14:00 02/12/25 14:04 Acetaminophen/ Hydrocodone Bitart ([place] 5/325MG Tab) 1 tab Q4HP PRN PO MODERATE PAIN (4-6 PAIN SCALE) 02/12/25 06:15 02/12/25 11:39 Ondansetron HCl (Zofran) 4 mg Q4HP PRN IV NAUSEA / VOMITING 02/12/25 06:15 02/12/25 15:22 Docusate Sodium (Colace Capsule) 100 mg BIDPRN PRN PO FOR CONSTIPATION 02/12/25 06:15 Acetaminophen (Tylenol Tablet) 650 mg Q6HP PRN PO PAIN SCALE 1-3 OR TEMP>100.4 02/12/25 06:15 Morphine Sulfate 2 mg Q4HPRN PRN IV SEVERE PAIN (7-10 PAIN SCALE) 02/12/25 06:15 Nitroglycerin (Ntrostat Sublingual) 0.4 mg Q5MINP PRN SL FOR CHEST PAIN 02/12/25 06:15 Morphine Sulfate 2 mg Q30M PRN IV FOR CHEST PAIN 02/12/25 06:15 Ceftriaxone Sodium 50 ml @ 100 mls/hr DAILY@09 IV 02/13/25 09:00 Review of Systems 14 point ROS negative except mentioned in HPI Vital Signs Vital Signs Date Time Temp Pulse Resp B/P (MAP) Pulse Ox O2 Delivery O2 Flow Rate FiO2 02/12/25 16:26 97.6 54 16 122/79 (93) 98 97.6 02/12/25 11:33 Room Air* 0 21 Physical Exam GE - in no acute distress CVS - S1S2+ Lungs - clear Abdomen - soft, non-distended, tender, BS+ Labs/Diagnostic Data Labs Test 02/12/25 07:00 02/12/25 06:14 02/12/25 04:06 02/12/25 03:44 Range/Units Sodium Level 139 136-145 mmol/L Potassium Level 4.8 3.5-5.1 mmol/L Chloride Level 105 98-107 mmol/L Carbon Dioxide Level 27 20-31 mmol/L Anion Gap 7 5-15 Blood Urea Nitrogen 10 9-23 mg/dL Creatinine 0.62 0.550-1.02 mg/dL Glomerular Filtration Rate Calc 122 >90 mL/min BUN/Creatinine Ratio 16.1 10.0-20.0 Serum Glucose 89 74-106 mg/dL Calcium Level 9.4 8.7-10.4 mg/dL White Blood Count 9.3 4.4-10.8 10^3/uL Red Blood Count 4.71 4.0-5.20 10^6/uL Hemoglobin 13.3 12.2-16.2 g/dL Hematocrit 39.4 36.0-46.0 % Mean Corpuscular Volume 83.6 80.0-100.0 fL Mean Corpuscular Hemoglobin 28.3 28.0-32.0 pg Mean Corpuscular Hemoglobin Concent 33.9 32.0-36.0 g/dL Red Cell Distribution Width 14.0 11.8-14.3 % Platelet Count 219 140-450 10^3/uL Mean Platelet Volume 10.3 6.9-10.8 fL Neutrophils (%) (Auto) 61.3 37.0-80.0 % Lymphocytes (%) (Auto) 31.7 10.0-50.0 % Monocytes (%) (Auto) 4.9 0.0-12.0 % Eosinophils (%) (Auto) 1.7 0.0-7.0 % Basophils (%) (Auto) 0.4 0.0-2.0 % Neutrophils # (Auto) 5.7 1.6-8.6 10 ^3/uL Lymphocytes # (Auto) 2.9 0.4-5.4 10 ^3/uL Monocytes # (Auto) 0.5 0-1.3 10 ^3/uL Eosinophils # (Auto) 0.2 0-0.8 10 ^3/uL Basophils # (Auto) 0 0-0.2 10 ^3/uL Nucleated Red Blood Cells 0.1 % Urine Color Yellow Yellow Urine Clarity Clear Clear Urine pH 6.0 5.0-9.0 Urine Specific [place] 1.026 1.001-1.035 Urine Protein Negative Negative Urine Ketones Negative Negative Urine Blood 3+ H Negative /uL Urine Nitrite Negative Negative Urine Bilirubin Negative Negative Urine Urobilinogen Normal Negative mg/dL Urine Leukocyte Esterase 1+ Negative /uL Urine RBC 50 0 - 4 /hpf Urine Microscopic WBC 3 0-5 /HPF Urine Squamous Epithelial Cells Few <5 /hpf Urine Bacteria None seen None Seen /hpf Urine Mucus Few None Seen Urine Glucose Normal Normal mg/dL Urine Test Negative Negative Total Bilirubin 0.4 0.2-1.0 mg/dL Aspartate Amino Transferase (AST) 21 13-40 U/L Alanine Aminotransferase (ALT) 52 H 7-40 U/L Alkaline Phosphatase 97 46-116 U/L Total Protein 7.3 5.7-8.2 g/dL Albumin 4.3 3.2-4.8 g/dL Lipase 33 12-53 U/L Assessment #Epigastric pain #Nausea #Elevated ALT, rest of the liver enzymes normal #Fatty liver Plan/Recommendation #PPI IV BID rec. Monitor clinical response #Surgery team on board. HIDA pending #Further mgmt plan based on the above. Check H pylori if HIDA neg. Consider EGD only if sx persists and HIDA neg -Discussed care plan with pt and RN bedside Thank you for the consult Plan discussed with: Patient NATY VALENZUELA MD Feb 12, 2025 20:36
[2025-02-12 21:00] VITALS: BP 120/88; PULSE 68; RESP 19; TEMP 98; O2SAT 97
[2025-02-13] VITALS (10 sets, daily range): BP systolic 105–150; BP diastolic 62–95; PULSE 61–80; RESP 16–19; TEMP 97.6–98.6; O2SAT 96–100
[2025-02-13 07:21] LABS: Hematocrit 42.3 % (36.0-46.0); Hemoglobin 14.6 g/dL (12.2-16.2); Mean Corpuscular Hemoglobin 28.6 pg (28.0-32.0); Mean Corpuscular Volume 83.2 fL (80.0-100.0); Nucleated Red Blood Cells % 0.2 %
[2025-02-13 07:35] LABS: Albumin 4.5 g/dL (3.2-4.8); Alkaline Phosphatase 112 U/L (46-116); Anion Gap 12 (5-15); BUN/Creatinine Ratio 13.6 (10.0-20.0); Calcium 9.7 mg/dL (8.7-10.4); Carbon Dioxide 24 mmol/L (20-31); Chloride 104 mmol/L (98-107); Glucose 92 mg/dL (74-106); Potassium 3.7 mmol/L (3.5-5.1); Sodium 140 mmol/L (136-145); Total Protein 7.6 g/dL (5.7-8.2)
[2025-02-13 07:36] LABS: Alanine Aminotransferase 76 U/L (7-40); Bilirubin, Total 0.9 mg/dL (0.2-1.0); Blood Urea Nitrogen 8 mg/dL (9-23)
[2025-02-13] MEDS: PANTOPRAZOLE 40 MG/10 ML VIAL INJ IV SCH (09:59)
[2025-02-13] MEDS: cefTRIAXone 1GM/50ML D5W 50 ML IV SCH (09:59)
[2025-02-13] MEDS: SUCCINYLCHOLINE CHLORIDE 20 MG/ML 10ML VIAL IV ONE (15:55)
--- NOTE | 2025-02-13 17:17 | DVHOP2 ---
Operative Report - 2 Report Details Date: 02/13/25 Preop Diagnosis: 1. Cholecystitis Postop Diagnosis: 1. Same Surgeon: Adrian Foreman MD Health Associate: None Anesthesiologist: Dr. Gerber Rivero Anesthesia: General, Local Consent: The surgery and its risks including but not limited to infection, bleeding requiring possible blood transfusion with the risk of hepatitis or HIV infection, possible open surgery, possible cystic duct leak or retained common bile duct stone requiring further intervention such as an ERCP, possible perioperative [place] or stroke were explained to the patient. All questions were answered to her satisfaction. She expressed verbal understanding and wished to proceed with the surgery. Complications: None Estimated Blood Loss: 50 mL Fluids: 1 L Name of Procedure Performed Laparoscopic cholecystectomy Procedure Details Procedure Details: After induction of general anesthesia, patient's abdomen was prepped and draped in standard surgical fashion. A infraumbilical incision was made and this was taken through the abdominal wall down to the fascia which was opened using electrocautery. Peritoneum was then bluntly divided gaining access to the intra-abdominal cavity. Interrupted 0 Vicryl sutures were placed through the fascial incision and using an open technique, Presley trocar was introduced and secured using the Vicryl sutures. Abdomen was insufflated to 15 mmHg and camera was inserted. Visual examination of the intestine under the fascial incision appeared normal without injury. Under direct visualization a 5 mm bladeless trocar was placed in the subxiphoid region and two additional 5 mm bladeless trocars were placed in the right upper quadrant all under direct visualization. Examination of the right upper quadrant revealed a distended and slightly edematous gallbladder. Gallbladder was grasped and retracted in the cephalad direction and infundibulum was retracted laterally. Careful blunt dissection was performed to identify the cystic duct which appeared normal in size. This was clipped and divided using Endoclips without complication. Cystic artery was running along next to the cystic duct and this was also clipped and divided using Endoclips without complication. Gallbladder was then removed from the liver bed using electrocautery. There was no bile or stone spillage. Gallbladder was removed from the abdominal cavity using an endo pouch bag and sent off the surgical field. Abdomen was then re-insufflated and hemostasis in the liver bed was achieved using electrocautery. Right upper quadrant was then well irrigated until fluid was clear. Trocars were then removed under direct visualization as the abdomen was deflated. Additional interrupted 0 Vicryl sutures were placed through the infraumbilical fascial incision and the sutures were tied down closing off the infraumbilical fascia. Surgical sites were irrigated injected with 20 mL of 0.25% Marcaine with epinephrine. Skin incisions were closed using nicki. Surgical sites were cleaned and dried and dressings were applied. Sponge, needle, instrument count at the end of the case were reported to be correct by the nursing staff. The patient tolerated procedure well and was awakened, extubated and transferred to recovery in stable condition. Specimen: Gallbladder Condition Stable Disposition Still a Patient ADRIAN FOREMAN MD Feb 13, 2025 17:17
[2025-02-13] MEDS: BUPIVACAINE W/ EPINEPH 0.5% MPF 30ML VIAL IJ ONE (17:24)
[2025-02-13] MEDS: METOCLOPRAMIDE HCL 5MG/ml INJ 2ml VIAL IV ONE (17:30)
[2025-02-13] MEDS: ONDANSETRON HCL 4 MG/2 ML VIAL IV ONE (17:30)
[2025-02-13] MEDS ORDERED: MEPERIDINE HCL (25 MG/ML) 1ML VIAL IV PRN (17:30)
[2025-02-13] MEDS: ACETAMINOPHEN IV 1000 MG/100ML (10MG/ML) IV PRN (17:45)
[2025-02-13] MEDS: HYDROmorphone HCL 2 MG/ML VL/or syr IV PRN (17:45)
--- NOTE | 2025-02-13 18:19 | DVHPN2 ---
Progress Note Date Seen: Feb 13, 2025 Resident Creating Document: ELGIN BOWDEN RESIDENT Has the PT tested + for MRSA If YES, has PT been informed?: No Medical Necessity Reason Pt with a Central, PICC or Fol: No Subjective Review of Systems The patient is a 29-year-old female with a past medical history significant for GERD and fatty liver, who presented with epigastric abdominal pain associated with nausea and vomiting, particularly with oral intake. She denied GI bleeding or diarrhea. Initially, a HIDA scan was planned, but today the patient consented for surgical intervention. She was evaluated on the pre-operative floor, clinically stable, and proceeded to the OR where she underwent laparoscopic cholecystectomy. The procedure was tolerated well with no intraoperative complications. Postoperatively, the patient is stable, denies worsening pain or vomiting. EGD previously considered has been canceled. Plan is to arrange outpatient GI follow-up for further evaluation of GERD and fatty liver. Brief Gist of Todays Progress * Patient successfully underwent laparoscopic cholecystectomy. * Post-op recovery is stable with adequate pain control. * No EGD planned during this admission. * GI follow-up to be arranged as an outpatient for further workup of GERD and management of fatty liver. ROS * General: No fever, chills, or weight loss * GI: Positive for epigastric pain, nausea, vomiting (improved post-op). No melena, hematemesis, or diarrhea * : No dysuria * Other systems: Negative Objective vital signs Vital Sign Date Time Temp Pulse Resp B/P (MAP) Pulse Ox O2 Delivery O2 Flow Rate FiO2 02/13/25 17:57 72 16 140/88 (105) 97 02/13/25 17:12 Mask 9.0 02/13/25 17:12 100 02/13/25 17:12 97.2 97.2 Total Intake and Output 02/12/25 02/12/25 02/13/25 15:00 23:00 07:00 Intake Total 400 ml 100 ml Balance 400 ml 100 ml medications Current Medications Medications Dose Ordered Sig/Tabitha Route Start Time Stop Time Status Last Admin Dose Admin Pantoprazole Sodium 40 mg DAILY IV 02/13/25 10:00 02/13/25 09:59 40 MG Sodium Chloride 10 ml Q8HR IV 02/12/25 14:00 02/13/25 10:00 10 ML Acetaminophen/ Hydrocodone Bitart 1 tab Q4HP PRN PO 02/12/25 06:15 02/12/25 11:39 1 TAB Ondansetron HCl 4 mg Q4HP PRN IV 02/12/25 06:15 02/12/25 15:22 4 MG Docusate Sodium 100 mg BIDPRN PRN PO 02/12/25 06:15 Acetaminophen 650 mg Q6HP PRN PO 02/12/25 06:15 Morphine Sulfate 2 mg Q4HPRN PRN IV 02/12/25 06:15 Nitroglycerin 0.4 mg Q5MINP PRN SL 02/12/25 06:15 Morphine Sulfate 2 mg Q30M PRN IV 02/12/25 06:15 Ceftriaxone Sodium 50 ml @ 100 mls/hr DAILY@09 IV 02/13/25 09:00 02/13/25 09:59 100 MLS/HR Examination Physical Examination * General: Alert, oriented, in no acute distress * CVS: S1S2+, no murmurs * Respiratory: Clear to auscultation bilaterally * Abdomen: Soft, non-distended, tender in the epigastrium and RUQ, positive bowel sounds * Extremities: No edema * Skin: No jaundice laboratory and microbiology Laboratory Tests 02/13/25 06:08 Test 02/13/25 06:08 Range/Units Serum Glucose 92 74-106 mg/dL Microbiology Date/Time Source Procedure Growth Status 02/12/25 04:06 Voided Urine Urine Culture - Preliminary Resulted Problem List/Assessment/Plan Problems(with codes): (1) Acute cholecystitis (2) Epigastric abdominal pain (3) Fatty liver (4) GERD (gastroesophageal reflux disease) Problem List/Assessment/Plan Assessment 1. Acute cholecystitis secondary to cholelithiasis s/p laparoscopic cholecystectomy on 02/13/25. 2. Epigastric pain and nausea improved postoperatively, likely related to gallbladder disease; underlying GERD. 3. Elevated ALT with normal bilirubin likely due to fatty liver; requires outpatient monitoring. 4. Fatty liver incidental finding, needs outpatient follow-up and lifestyle modification. 5. GERD ongoing symptoms, outpatient evaluation with possible EGD if symptoms persist. Plan (GI-Specific) Gastrointestinal * Monitor for post-cholecystectomy complications (bile leak, infection, persistent pain). * No inpatient EGD required; outpatient EGD to be scheduled if GERD symptoms persist. * Continue IV PPI (Pantoprazole) daily during hospitalization, transition to oral on discharge. * Encourage small frequent meals and avoidance of GERD triggers. Liver * Monitor liver function tests during hospitalization; outpatient recheck in 4-6 weeks. 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 Postoperative Care * Follow surgical team recommendations for wound care, activity, and diet advancement. * Pain control with acetaminophen and PRN opioids as needed. * Continue antiemetics as required. Follow-Up * Arrange outpatient GI clinic follow-up within 4 weeks for GERD evaluation and liver monitoring. * Schedule outpatient labs: repeat LFTs and metabolic panel. Case discussed in detail with the attending physician, including the clinical presentation, diagnostic workup, and comprehensive management plan. The patient was present for the discussion and demonstrated understanding of her condition and the proposed plan. Plan discussed with: Patient ELGIN BOWDEN RESIDENT Feb 13, 2025 18:19
[2025-02-14] VITALS (8 sets, daily range): BP systolic 114–143; BP diastolic 70–84; PULSE 63–75; RESP 16–20; TEMP 97.5–98.2; O2SAT 95–98
[2025-02-14] MEDS: MORPHINE SULFATE INJ 2 MG/ml SYRG IV PRN (04:16)
[2025-02-14 06:34] LABS: Hematocrit 42.5 % (36.0-46.0); Hemoglobin 14.3 g/dL (12.2-16.2); Mean Corpuscular Hemoglobin 28.4 pg (28.0-32.0); Mean Corpuscular Volume 84.6 fL (80.0-100.0); Nucleated Red Blood Cells % 0.1 %
[2025-02-14 06:47] LABS: Anion Gap 9 (5-15); BUN/Creatinine Ratio 11.7 (10.0-20.0); Calcium 9.7 mg/dL (8.7-10.4); Carbon Dioxide 24 mmol/L (20-31); Chloride 104 mmol/L (98-107); Potassium 4.2 mmol/L (3.5-5.1); Sodium 137 mmol/L (136-145); Total Protein 7.5 g/dL (5.7-8.2)
[2025-02-14 06:48] LABS: Albumin 4.4 g/dL (3.2-4.8); Bilirubin, Total 0.9 mg/dL (0.2-1.0)
[2025-02-14 06:55] LABS: Alanine Aminotransferase 135 U/L (7-40); Alkaline Phosphatase 125 U/L (46-116); Blood Urea Nitrogen 7 mg/dL (9-23); Glucose 133 mg/dL (74-106)
--- NOTE | 2025-02-14 09:30 | DVHPN2 ---
Progress Note - Dictate Date Seen: Feb 14, 2025 Has the PT tested + for MRSA If YES, has PT been informed?: No Medical Necessity Reason Pt with a Central, PICC or Fol: No Subjective E: no major events o/n. c/o nausea and incisional pain. vital signs Vital Sign Date Time Temp Pulse Resp B/P (MAP) Pulse Ox O2 Delivery O2 Flow Rate FiO2 02/14/25 08:00 16 96 Room Air* 0 21 02/14/25 05:00 97.5 74 143/84 (103) 97.5 Total Intake and Output 02/13/25 02/13/25 02/14/25 15:00 23:00 07:00 Intake Total 100 ml 0 ml 100 ml Balance 100 ml 0 ml 100 ml medications Current Medications Medications Dose Ordered Sig/Tabitha Route Start Time Stop Time Status Last Admin Dose Admin Pantoprazole Sodium 40 mg DAILY IV 02/13/25 10:00 02/14/25 08:50 40 MG Sodium Chloride 10 ml Q8HR IV 02/12/25 14:00 02/14/25 05:57 10 ML Acetaminophen/ Hydrocodone Bitart 1 tab Q4HP PRN PO 02/12/25 06:15 02/14/25 03:26 1 TAB Ondansetron HCl 4 mg Q4HP PRN IV 02/12/25 06:15 02/14/25 03:26 4 MG Docusate Sodium 100 mg BIDPRN PRN PO 02/12/25 06:15 Acetaminophen 650 mg Q6HP PRN PO 02/12/25 06:15 Morphine Sulfate 2 mg Q4HPRN PRN IV 02/12/25 06:15 02/14/25 04:16 2 MG Nitroglycerin 0.4 mg Q5MINP PRN SL 02/12/25 06:15 Morphine Sulfate 2 mg Q30M PRN IV 02/12/25 06:15 Ceftriaxone Sodium 50 ml @ 100 mls/hr DAILY@09 IV 02/13/25 09:00 02/14/25 08:50 100 MLS/HR objective GEN: NAD ABD: surgical dressings clean and dry laboratory and microbiology Laboratory Tests 02/14/25 05:40 Test 02/14/25 05:40 Range/Units Serum Glucose 133 H 74-106 mg/dL Assessment/Plan A: 1. s/p lap cholecystectomy POD #1 P: 1. cont iv abx 2. recheck LFTs. if trending down, OK to DC home from surgery POV. 3. remove bandages tomorrow and shower. ok to get incisions wet. 4 f/u in clinic next week. call [phone] for appt Plan discussed with: Patient ADRIAN MENDOZA MD Feb 14, 2025 09:30
[2025-02-14] MEDS: SODIUM CHLORIDE 0.9% 1,000 ML IV SCH (11:25)
--- NOTE | 2025-02-14 16:10 | DVHPN2 ---
Progress Note Date Seen: Feb 14, 2025 Resident Creating Document: ELGIN BOWDEN RESIDENT Has the PT tested + for MRSA If YES, has PT been informed?: No Medical Necessity Reason Pt with a Central, PICC or Fol: No Subjective Review of Systems The patient is a 29-year-old female with a history of GERD and fatty liver who underwent laparoscopic cholecystectomy yesterday for acute cholecystitis. Today she was examined at bedside. She reports persistent nausea and mild abdominal discomfort at the surgical site. She is currently on a clear liquid diet but reports difficulty keeping oral intake down. She is ambulating to the restroom without assistance. Last bowel movement was on Thursday, and urination is normal. She has initiated incentive spirometry. No vomiting, hematemesis, melena, or diarrhea. Denies fever, chills, or jaundice. Brief Gist of Todays Progress * Status post laparoscopic cholecystectomy recovering with stable vitals. * Persistent nausea limiting oral intake; remains on IV fluids. * Pain is controlled with current analgesics. * Surgical incision sites clean, dry, and intact. * Labs show mild transaminitis (ALT 76, AST 44), consistent with fatty liver/postoperative changes. * GI to continue monitoring postoperative recovery and arrange outpatient follow-up for GERD and fatty liver management. ROS * Constitutional: No fever, chills, or weight loss. * GI: Positive for nausea and mild abdominal pain. Negative for vomiting, hematemesis, melena, or diarrhea. * : Normal urination. * Other systems: Negative. Objective vital signs Vital Sign Date Time Temp Pulse Resp B/P (MAP) Pulse Ox O2 Delivery O2 Flow Rate FiO2 02/14/25 11:24 75 20 134/86 02/14/25 09:00 97.9 97 97.9 02/14/25 08:00 Room Air* 0 21 Total Intake and Output 02/13/25 02/13/25 02/14/25 15:00 23:00 07:00 Intake Total 100 ml 0 ml 100 ml Balance 100 ml 0 ml 100 ml medications Current Medications Medications Dose Ordered Sig/Tabitha Route Start Time Stop Time Status Last Admin Dose Admin Pantoprazole Sodium 40 mg DAILY IV 02/13/25 10:00 02/14/25 08:50 40 MG Sodium Chloride 10 ml Q8HR IV 02/12/25 14:00 02/14/25 05:57 10 ML Acetaminophen/ Hydrocodone Bitart 1 tab Q4HP PRN PO 02/12/25 06:15 02/14/25 03:26 1 TAB Ondansetron HCl 4 mg Q4HP PRN IV 02/12/25 06:15 02/14/25 03:26 4 MG Docusate Sodium 100 mg BIDPRN PRN PO 02/12/25 06:15 Acetaminophen 650 mg Q6HP PRN PO 02/12/25 06:15 Morphine Sulfate 2 mg Q4HPRN PRN IV 02/12/25 06:15 02/14/25 11:24 2 MG Nitroglycerin 0.4 mg Q5MINP PRN SL 02/12/25 06:15 Morphine Sulfate 2 mg Q30M PRN IV 02/12/25 06:15 Ceftriaxone Sodium 50 ml @ 100 mls/hr DAILY@09 IV 02/13/25 09:00 02/14/25 08:50 100 MLS/HR Sodium Chloride 1,000 ml @ 75 mls/hr [id number] IV 02/14/25 09:30 02/14/25 11:25 75 MLS/HR Examination * General: Alert, oriented, no acute distress. * CVS: Regular rate and rhythm, no murmurs. * Respiratory: Clear to auscultation bilaterally. * Abdomen: Soft, nondistended, mild tenderness at incision sites, bowel sounds present. * Skin: Incision sites clean, dry, no erythema or discharge. * Extremities: No edema. laboratory and microbiology Laboratory Tests 02/14/25 05:40 Test 02/14/25 05:40 Range/Units Serum Glucose 133 H 74-106 mg/dL Microbiology Date/Time Source Procedure Growth Status 02/12/25 04:06 Voided Urine Urine Culture - Final Complete Problem List/Assessment/Plan Problem List/Assessment/Plan Assessment 1. Postoperative Day 1 status post laparoscopic cholecystectomy for acute cholecystitis stable, mild nausea present. 2. Persistent nausea likely postoperative, exacerbated by oral intake. 3. GERD pre-existing, needs outpatient EGD if symptoms persist. 4. Elevated ALT and fatty liver stable, requires outpatient follow-up. Plan Gastrointestinal * Encourage ambulation and use of incentive spirometry. * Maintain clear liquid diet; advance diet as tolerated. * Continue Ondansetron IV PRN for nausea. * Continue Pantoprazole IV daily; transition to oral PPI when tolerating PO. * Hold inpatient EGD; outpatient EGD only if symptoms persist. * Time Checker patient on GERD precautions and low-fat diet post-cholecystectomy. Liver * Monitor liver enzymes daily during hospitalization. * Outpatient follow-up for fatty liver evaluation and management. Postoperative Support * Maintain IV fluids (NS at 75 mL/hr) until adequate PO intake achieved. * Pain control with scheduled acetaminophen and PRN [place] or IV morphine. * Monitor incision sites for infection. Follow-Up * Schedule outpatient GI clinic visit in 4 weeks for further evaluation of GERD and monitoring of liver function. Case discussed in detail with the attending physician, including the clinical presentation, diagnostic workup, and comprehensive management plan. The patient was present for the discussion and demonstrated understanding of her condition and the proposed plan. Plan discussed with: Patient ELGIN BOWDEN RESIDENT Feb 14, 2025 16:10
--- NOTE | 2025-02-14 18:38 | DVHPN2 ---
Subjective 29-year-old female with a no significant past medical history presented to the hospital with a epigastric abdominal pain as well as nausea found to have symptomatic cholelithiasis. Patient is still complaining of nausea. Reviewed: Care Plan Changes from previous H/P or p: No Changes Eyes: No Pain, No Vision change, No Conjunctivae inflammation, No Eyelid inflammation, No Other, No Redness ENT: No Ear pain, No Ear discharge, No Nose pain, No Nose discharge, No Nose congestion, No Mouth pain, No Mouth swelling, No Throat pain, No Throat swelling, No Other Cardiovascular: No Chest Pain, No Palpitations, No Orthopnea, No Paroxysmal Noc. Dyspnea, No Edema, No Lt Headedness, No Other Respiratory: No Cough, No Dry, No Shortness of breath, No SOB with excertion, No Wheezing, No Hemoptysis, No Pleuritic Pain, No Sputum, No Other Gastrointestinal: Nausea, Vomiting, Abdominal Pain; No Diarrhea, No Constipation, No Melena, No Hematochezia, No Other Genitourinary: No Dysuria, No Frequency, No Incontinence, No Hematuria, No Retention, No Other Musculoskeletal: No other, No neck pain, No shoulder pain, No arm pain, No back pain, No hand pain, No leg pain, No foot pain Skin: No Rash, No Lesions, No Jaundice, No Bruising, No Other Objective Vitals Vital Signs Date Time Temp Pulse Resp B/P (MAP) Pulse Ox O2 Delivery O2 Flow Rate FiO2 02/14/25 13:00 68 20 130/82 (98) 97 02/14/25 09:00 97.9 97.9 02/14/25 08:00 Room Air* 0 21 Intake/Output Intake and Output 02/14/25 07:00 Intake Total 200 ml Balance 200 ml Intake Oral 100 ml IV Total 100 ml # Voids 8 Medications Current Medications Medications Dose Ordered Sig/Tabitha Route Start Time Stop Time Status Last Admin Dose Admin Pantoprazole Sodium 40 mg DAILY IV 02/13/25 10:00 02/14/25 08:50 40 MG Sodium Chloride 10 ml Q8HR IV 02/12/25 14:00 02/14/25 17:24 10 ML Acetaminophen/ Hydrocodone Bitart 1 tab Q4HP PRN PO 02/12/25 06:15 02/14/25 03:26 1 TAB Ondansetron HCl 4 mg Q4HP PRN IV 02/12/25 06:15 02/14/25 03:26 4 MG Docusate Sodium 100 mg BIDPRN PRN PO 02/12/25 06:15 Acetaminophen 650 mg Q6HP PRN PO 02/12/25 06:15 Morphine Sulfate 2 mg Q4HPRN PRN IV 02/12/25 06:15 02/14/25 11:24 2 MG Nitroglycerin 0.4 mg Q5MINP PRN SL 02/12/25 06:15 Morphine Sulfate 2 mg Q30M PRN IV 02/12/25 06:15 Ceftriaxone Sodium 50 ml @ 100 mls/hr DAILY@09 IV 02/13/25 09:00 02/14/25 08:50 100 MLS/HR Sodium Chloride 1,000 ml @ 75 mls/hr [id number] IV 02/14/25 09:30 02/14/25 11:25 75 MLS/HR Laboratory Results Laboratory Tests 02/14/25 05:40 Chemistry Test 02/14/25 05:40 Albumin 4.4 g/dL (3.2-4.8) Calcium Level 9.7 mg/dL (8.7-10.4) Total Protein 7.5 g/dL (5.7-8.2) LFT Test 02/14/25 05:40 Alanine Aminotransferase (ALT) 135 U/L (7-40) H Alkaline Phosphatase 125 U/L (46-116) H Aspartate Amino Transferase (AST) 83 U/L (13-40) H Total Bilirubin 0.9 mg/dL (0.2-1.0) Urinalysis Test 02/12/25 04:06 Urine Color Yellow (Yellow) Urine Clarity Clear (Clear) Urine pH 6.0 (5.0-9.0) Urine Specific [place] 1.026 (1.001-1.035) Urine Protein Negative (Negative) Urine Ketones Negative (Negative) Urine Blood 3+ /uL (Negative) H Urine Nitrite Negative (Negative) Urine Bilirubin Negative (Negative) Urine Urobilinogen Normal mg/dL (Negative) Urine Leukocyte Esterase 1+ /uL (Negative) Urine RBC 50 /hpf (0 - 4) Urine Microscopic WBC 3 /HPF (0-5) Urine Squamous Epithelial Cells Few /hpf (<5) Urine Bacteria None seen /hpf (None Seen) Urine Mucus Few (None Seen) Urine Glucose Normal mg/dL (Normal) Urine Test Negative (Negative) Microbiology Microbiology Date/Time Source Procedure Growth Status 02/12/25 04:06 Voided Urine Urine Culture - Final Complete Assessment/Plan Assessment/Plan 29-year-old female with a no significant past medical history presented to the hospital with the abdominal pain nausea found to have 1. Abdominal pain with the nausea suspect symptomatic cholelithiasis 2. Symptomatic cholelithiasis STATUS POST LAP CHOLECYSTECTOMY. 3. Hepatic steatosis 4. Morbid obesity classII 5. TRANSAMINITIS -REPEAT CMP IN A.M. TO MAKE SURE LFTS ARE TRENDING DOWN. -clear liquid diet as tolerated, surgical consultation. Plan discussed with: Patient Date of Service: Feb 14, 2025 Billing Provider: VIKTORIA HUGHES MD Common Visit Codes: [id number] INP/OBS CARE(MOD) VIKTORIA HUGHES MD Feb 14, 2025 18:38
[2025-02-15] VITALS (7 sets, daily range): BP systolic 107–140; BP diastolic 65–88; PULSE 62–76; RESP 15–18; TEMP 97.7–99.3; O2SAT 73–98
[2025-02-15 06:28] LABS: Hematocrit 39.3 % (36.0-46.0); Hemoglobin 13.4 g/dL (12.2-16.2); Mean Corpuscular Hemoglobin 28.5 pg (28.0-32.0); Mean Corpuscular Volume 83.8 fL (80.0-100.0); Nucleated Red Blood Cells % 0.1 %
[2025-02-15 06:31] LABS: Albumin 3.9 g/dL (3.2-4.8); Anion Gap 7 (5-15); BUN/Creatinine Ratio 17.8 (10.0-20.0); Carbon Dioxide 26 mmol/L (20-31); Chloride 107 mmol/L (98-107); Glucose 90 mg/dL (74-106); Potassium 3.9 mmol/L (3.5-5.1); Sodium 140 mmol/L (136-145); Total Protein 6.5 g/dL (5.7-8.2)
[2025-02-15 06:32] LABS: Bilirubin, Total 1.0 mg/dL (0.2-1.0)
[2025-02-15 06:40] LABS: Alanine Aminotransferase 292 U/L (7-40); Alkaline Phosphatase 125 U/L (46-116); Blood Urea Nitrogen 8 mg/dL (9-23); Calcium 8.5 mg/dL (8.7-10.4)
[2025-02-15] MEDS: ENOXAPARIN SOD 40 MG/0.4 ML SYRINGE SC ONE (12:51)
--- NOTE | 2025-02-15 14:29 | DVH ---
PROCEDURE: MRI MRCP MRI Indication: ELEVATED lft COMPARISON: None TECHNIQUE: Multiplanar multisequence images of the abdomen are obtianed per MRCP protocol. FINDINGS: Examination degraded by motion. Tiny bilateral pleural effusions. No hydronephrosis. Adrenal glands, spleen unremarkable. Pancreas unremarkable. Interval cholecystectomy. Edema within the gallbladder fossa. No loculated collection identified. Ind eterminate 6 mm T2 bright lesion in the liver. Small amount of fluid within the gallbladder fossa. Common bile duct nondilated measures 6 mm. No ev idence for choledocholithiasis. Pancreatic duct nondilated measures less than 2 mm in diameter. IMPRESSION: Status post cholecystectomy. Edema within the gallbladder fossa. No loculated collection. Normal caliber common bile duct. No evidence for choledocholithiasis. Normal caliber pancreatic duct . Indeterminate T2 bright lesion within the liver measuring 6 mm. Recommend multiphasic MRI abdomen wi th and without contrast which can be done in the nonemergent setting. Tiny bilateral pleural effusions.
--- NOTE | 2025-02-15 15:42 | DVHPN2 ---
Subjective 29-year-old female with a no significant past medical history presented to the hospital with a epigastric abdominal pain as well as nausea found to have symptomatic cholelithiasis. Patient is still complaining of nausea. Reviewed: Care Plan Changes from previous H/P or p: No Changes Eyes: No Pain, No Vision change, No Conjunctivae inflammation, No Eyelid inflammation, No Other, No Redness ENT: No Ear pain, No Ear discharge, No Nose pain, No Nose discharge, No Nose congestion, No Mouth pain, No Mouth swelling, No Throat pain, No Throat swelling, No Other Cardiovascular: No Chest Pain, No Palpitations, No Orthopnea, No Paroxysmal Noc. Dyspnea, No Edema, No Lt Headedness, No Other Respiratory: No Cough, No Dry, No Shortness of breath, No SOB with excertion, No Wheezing, No Hemoptysis, No Pleuritic Pain, No Sputum, No Other Gastrointestinal: Nausea, Vomiting, Abdominal Pain; No Diarrhea, No Constipation, No Melena, No Hematochezia, No Other Genitourinary: No Dysuria, No Frequency, No Incontinence, No Hematuria, No Retention, No Other Musculoskeletal: No other, No neck pain, No shoulder pain, No arm pain, No back pain, No hand pain, No leg pain, No foot pain Skin: No Rash, No Lesions, No Jaundice, No Bruising, No Other Objective Vitals Vital Signs Date Time Temp Pulse Resp B/P (MAP) Pulse Ox O2 Delivery O2 Flow Rate FiO2 02/15/25 13:00 97.9 62 18 128/88 (101) 97 97.9 02/15/25 08:15 Room Air* 0 21 Intake/Output Intake and Output 02/15/25 07:00 Intake Total 1010 ml Balance 1010 ml Intake Oral 960 ml IV Total 50 ml # Voids 3 Medications Current Medications Medications Dose Ordered Sig/Tabitha Route Start Time Stop Time Status Last Admin Dose Admin Pantoprazole Sodium 40 mg DAILY IV 02/13/25 10:00 02/15/25 09:18 40 MG Sodium Chloride 10 ml Q8HR IV 02/12/25 14:00 02/15/25 06:00 10 ML Ondansetron HCl 4 mg Q4HP PRN IV 02/12/25 06:15 02/14/25 03:26 4 MG Docusate Sodium 100 mg BIDPRN PRN PO 02/12/25 06:15 Acetaminophen 650 mg Q6HP PRN PO 02/12/25 06:15 Morphine Sulfate 2 mg Q4HPRN PRN IV 02/12/25 06:15 02/14/25 20:04 2 MG Nitroglycerin 0.4 mg Q5MINP PRN SL 02/12/25 06:15 Morphine Sulfate 2 mg Q30M PRN IV 02/12/25 06:15 Ceftriaxone Sodium 50 ml @ 100 mls/hr DAILY@09 IV 02/13/25 09:00 02/15/25 09:18 100 MLS/HR Sodium Chloride 1,000 ml @ 75 mls/hr [id number] IV 02/14/25 09:30 02/15/25 12:51 75 MLS/HR Enoxaparin Sodium 40 mg DAILY SC 02/16/25 10:00 Laboratory Results Laboratory Tests 02/15/25 05:25 Chemistry Test 02/15/25 05:25 Albumin 3.9 g/dL (3.2-4.8) Calcium Level 8.5 mg/dL (8.7-10.4) L Total Protein 6.5 g/dL (5.7-8.2) LFT Test 02/15/25 05:25 Alanine Aminotransferase (ALT) 292 U/L (7-40) H Alkaline Phosphatase 125 U/L (46-116) H Aspartate Amino Transferase (AST) 239 U/L (13-40) H Total Bilirubin 1.0 mg/dL (0.2-1.0) Urinalysis Test 02/12/25 04:06 Urine Color Yellow (Yellow) Urine Clarity Clear (Clear) Urine pH 6.0 (5.0-9.0) Urine Specific [place] 1.026 (1.001-1.035) Urine Protein Negative (Negative) Urine Ketones Negative (Negative) Urine Blood 3+ /uL (Negative) H Urine Nitrite Negative (Negative) Urine Bilirubin Negative (Negative) Urine Urobilinogen Normal mg/dL (Negative) Urine Leukocyte Esterase 1+ /uL (Negative) Urine RBC 50 /hpf (0 - 4) Urine Microscopic WBC 3 /HPF (0-5) Urine Squamous Epithelial Cells Few /hpf (<5) Urine Bacteria None seen /hpf (None Seen) Urine Mucus Few (None Seen) Urine Glucose Normal mg/dL (Normal) Urine Test Negative (Negative) Microbiology Microbiology Date/Time Source Procedure Growth Status 02/12/25 04:06 Voided Urine Urine Culture - Final Complete Assessment/Plan Assessment/Plan 29-year-old female with a no significant past medical history presented to the hospital with the abdominal pain nausea found to have 1. Abdominal pain with the nausea suspect symptomatic cholelithiasis 2. Symptomatic cholelithiasis STATUS POST LAP CHOLECYSTECTOMY. 3. Hepatic steatosis 4. Morbid obesity classII 5. TRANSAMINITIS, trended up -REPEAT CMP IN A.M. TO MAKE SURE LFTS ARE TRENDING DOWN. -diet as tolerated, discharge plan likely tomorrow. Plan discussed with: Patient My Orders Orders - VIKTORIA HUGHES MD Procedure Category Date Status Time Enoxaparin Sodium PHA 02/16/25 In Process (Lovenox) 10:00 Mrcp Mri MRI 02/15/25 Resulted 12:33 Soft Diet DIET 02/15/25 Transmitted Dinner Comprehensive LAB 02/16/25 Verified Metabolic Panel 04:00 Date of Service: Feb 15, 2025 Billing Provider: VIKTORIA HUGHES MD Common Visit Codes: [id number] INP/OBS CARE(MOD) VIKTORIA HUGHES MD Feb 15, 2025 15:41
--- NOTE | 2025-02-15 16:15 | DVHPN2 ---
Progress Note Date Seen: Feb 15, 2025 Resident Creating Document: ELGIN BOWDEN RESIDENT Has the PT tested + for MRSA If YES, has PT been informed?: No Medical Necessity Reason Pt with a Central, PICC or Fol: No Subjective Review of Systems The patient is a 29-year-old female, postoperative day 2 status post laparoscopic cholecystectomy for acute cholecystitis. She continues to experience persistent nausea, although she is tolerating full liquid diet with gradual advancement. Oral intake is limited due to nausea. She is ambulating every 4 hours and using incentive spirometry. Pain is well controlled with current regimen. No vomiting, hematemesis, melena, or diarrhea. She denies fever or chills. Urination is normal. Brief Gist of Todays Progress * Persistent nausea despite antiemetics, but tolerating liquids. * Transaminitis has worsened, with AST 239 and ALT 292 (previously 83/135). * MRCP/MRI completed: shows post-surgical edema at gallbladder fossa, no localized collection, no choledocholithiasis, normal caliber common bile duct and pancreatic duct, and a 6 mm T2-bright liver lesion (likely benign, requires further characterization with non-emergent multiphasic MRI). Tiny bilateral pleural effusions noted. * Started on Enoxaparin for DVT prophylaxis and continuing Ceftriaxone. * Discharge plan likely tomorrow if symptoms improve and LFTs trend down. Relevant Labs * Chemistry: AST 239 ? 83, ALT 292 ? 135, ALP 125, Total Bilirubin stable, Albumin 4.5. * CBC: Stable counts. * Repeat CMP planned for AM to ensure LFTs trend down. Imaging * MRCP/MRI (02/14/25): * Postsurgical edema in gallbladder fossa, no localized collection. * Normal caliber common bile duct, no choledocholithiasis. * Normal caliber pancreatic duct. * 6 mm intermediate T2 bright lesion in liver recommend multiphasic MRI abdomen with and without contrast (non-emergent). * Tiny bilateral pleural effusions. ROS * General: No fever, chills, or weight loss. * GI: Persistent nausea, mild abdominal pain. No vomiting, melena, hematochezia, or diarrhea. Objective vital signs Vital Sign Date Time Temp Pulse Resp B/P (MAP) Pulse Ox O2 Delivery O2 Flow Rate FiO2 02/15/25 13:00 97.9 62 18 128/88 (101) 97 97.9 7/30/25 08:15 Room Air* 0 21 Total Intake and Output 02/14/25 02/14/25 02/15/25 15:00 23:00 07:00 Intake Total 50 ml 960 ml 0 ml Balance 50 ml 960 ml 0 ml medications Current Medications Medications Dose Ordered Sig/Tabitha Route Start Time Stop Time Status Last Admin Dose Admin Pantoprazole Sodium 40 mg DAILY IV 02/13/25 10:00 02/15/25 09:18 40 MG Sodium Chloride 10 ml Q8HR IV 02/12/25 14:00 02/15/25 06:00 10 ML Ondansetron HCl 4 mg Q4HP PRN IV 02/12/25 06:15 02/14/25 03:26 4 MG Docusate Sodium 100 mg BIDPRN PRN PO 02/12/25 06:15 Acetaminophen 650 mg Q6HP PRN PO 02/12/25 06:15 Morphine Sulfate 2 mg Q4HPRN PRN IV 02/12/25 06:15 02/14/25 20:04 2 MG Nitroglycerin 0.4 mg Q5MINP PRN SL 02/12/25 06:15 Morphine Sulfate 2 mg Q30M PRN IV 02/12/25 06:15 Ceftriaxone Sodium 50 ml @ 100 mls/hr DAILY@09 IV 02/13/25 09:00 02/15/25 09:18 100 MLS/HR Sodium Chloride 1,000 ml @ 75 mls/hr [id number] IV 02/14/25 09:30 02/15/25 12:51 75 MLS/HR Enoxaparin Sodium 40 mg DAILY SC 02/16/25 10:00 Examination * General: Alert, oriented, no acute distress. * CVS: Regular rhythm, no murmurs. * Respiratory: Breath sounds clear, no distress. * Abdomen: Soft, nondistended, mild tenderness at incision sites, no guarding or rebound. Bowel sounds present. * Skin: Surgical incision sites clean, dry, and intact. * Extremities: No edema. laboratory and microbiology Laboratory Tests 02/15/25 05:25 Test 02/15/25 05:25 Range/Units Serum Glucose 90 74-106 mg/dL Microbiology Date/Time Source Procedure Growth Status 02/12/25 04:06 Voided Urine Urine Culture - Final Complete Problem List/Assessment/Plan Problem List/Assessment/Plan Assessment 1. Status post laparoscopic cholecystectomy (POD#2) recovering, but with persistent nausea and rising transaminases. 2. Postoperative nausea likely multifactorial (post-anesthesia, medications, decreased gastric motility). 3. Transaminitis likely secondary to surgical manipulation, postoperative inflammatory response, or medication effect. Trending to be re-evaluated. 4. Liver lesion (6 mm T2 bright) incidental, needs outpatient multiphasic MRI for further evaluation. 5. GERD chronic condition, to be followed outpatient. 6. Fatty liver requires outpatient monitoring and lifestyle intervention. Plan Gastrointestinal * Continue monitoring postoperative course. * Advance diet as tolerated, currently on full liquids. * Continue Ondansetron IV PRN for nausea. * Maintain IV PPI (Pantoprazole 40 mg) daily, transition to oral when tolerating PO. * No inpatient EGD required; outpatient EGD if GERD symptoms persist. * Continue Ceftriaxone IV as per surgical recommendations. Liver * Repeat CMP in AM to assess liver enzyme trend. * Outpatient multiphasic MRI for further characterization of the 6 mm liver lesion. * Avoid hepatotoxic medications. * Sourcer patient on fatty liver management. Postoperative Support * Continue IV fluids (NS at 75 mL/hr) until oral intake improves. * Pain control with scheduled acetaminophen and PRN [place]/morphine. * Encourage ambulation and use of incentive spirometry. * Monitor for signs of bile leak or worsening hepatic dysfunction. Prophylaxis * Continue Enoxaparin for DVT prophylaxis. Follow-Up * Outpatient GI follow-up in 4 weeks for evaluation of liver lesion and GERD. * Outpatient labs: repeat liver function tests in 12 weeks post-discharge. Case discussed in detail with the attending physician, including the clinical presentation, diagnostic workup, and comprehensive management plan. The patient was present for the discussion and demonstrated understanding of her condition and the proposed plan. Plan discussed with: Patient, Other (nurse) ELGIN BOWDEN RESIDENT Feb 15, 2025 16:15
[2025-02-16 01:00] VITALS: BP 154/90; PULSE 69; RESP 18; TEMP 97.9; O2SAT 96
[2025-02-16 05:00] VITALS: BP 117/71; PULSE 65; RESP 15; TEMP 98.2; O2SAT 97
[2025-02-16 05:37] LABS: Albumin 3.9 g/dL (3.2-4.8); Anion Gap 6 (5-15); BUN/Creatinine Ratio 15.6 (10.0-20.0); Carbon Dioxide 27 mmol/L (20-31); Potassium 3.9 mmol/L (3.5-5.1); Sodium 140 mmol/L (136-145); Total Protein 6.5 g/dL (5.7-8.2)
[2025-02-16 05:38] LABS: Bilirubin, Total 0.8 mg/dL (0.2-1.0)
[2025-02-16 05:57] LABS: Alanine Aminotransferase 220 U/L (7-40); Alkaline Phosphatase 119 U/L (46-116); Blood Urea Nitrogen 7 mg/dL (9-23); Calcium 8.6 mg/dL (8.7-10.4); Chloride 107 mmol/L (98-107); Glucose 107 mg/dL (74-106)
[2025-02-16 08:00] VITALS: PULSE 66; RESP 18; O2SAT 98
[2025-02-16] MEDS: ENOXAPARIN SOD 40 MG/0.4 ML SYRINGE SC SCH (09:53)
[2025-02-16 10:00] VITALS: BP 112/77; PULSE 66; RESP 18; TEMP 97.9; O2SAT 98
[2025-02-16 13:00] VITALS: BP 114/74; PULSE 66; RESP 18; TEMP 98.4; O2SAT 98
--- NOTE | 2025-02-16 16:42 | DVHDS2 ---
Discharge Summary Date of Admission Feb 12, 2025 at 06:04 Date of Discharge: Feb 16, 2025 Labs/Diagnostic Data: Laboratory Results Test 02/16/25 04:35 02/15/25 05:25 02/12/25 04:06 02/12/25 03:44 Sodium Level 140 mmol/L (136-145) Potassium Level 3.9 mmol/L (3.5-5.1) Chloride Level 107 mmol/L (98-107) Carbon Dioxide Level 27 mmol/L (20-31) Anion Gap 6 (5-15) Blood Urea Nitrogen 7 mg/dL (9-23) Creatinine 0.45 mg/dL (0.550-1.02) Glomerular Filtration Rate Calc 132 mL/min (>90) BUN/Creatinine Ratio 15.6 (10.0-20.0) Serum Glucose 107 mg/dL (74-106) Calcium Level 8.6 mg/dL (8.7-10.4) Total Bilirubin 0.8 mg/dL (0.2-1.0) Aspartate Amino Transferase (AST) 84 U/L (13-40) Alanine Aminotransferase (ALT) 220 U/L (7-40) Alkaline Phosphatase 119 U/L (46-116) Total Protein 6.5 g/dL (5.7-8.2) Albumin 3.9 g/dL (3.2-4.8) White Blood Count 5.5 10^3/uL (4.4-10.8) Red Blood Count 4.69 10^6/uL (4.0-5.20) Hemoglobin 13.4 g/dL (12.2-16.2) Hematocrit 39.3 % (36.0-46.0) Mean Corpuscular Volume 83.8 fL (80.0-100.0) Mean Corpuscular Hemoglobin 28.5 pg (28.0-32.0) Mean Corpuscular Hemoglobin Concent 34.0 g/dL (32.0-36.0) Red Cell Distribution Width 13.4 % (11.8-14.3) Platelet Count 199 10^3/uL (140-450) Mean Platelet Volume 9.9 fL (6.9-10.8) Neutrophils (%) (Auto) 62.6 % (37.0-80.0) Lymphocytes (%) (Auto) 31.7 % (10.0-50.0) Monocytes (%) (Auto) 5.2 % (0.0-12.0) Eosinophils (%) (Auto) 0.2 % (0.0-7.0) Basophils (%) (Auto) 0.3 % (0.0-2.0) Neutrophils # (Auto) 3.4 10 ^3/uL (1.6-8.6) Lymphocytes # (Auto) 1.7 10 ^3/uL (0.4-5.4) Monocytes # (Auto) 0.3 10 ^3/uL (0-1.3) Eosinophils # (Auto) 0 10 ^3/uL (0-0.8) Basophils # (Auto) 0 10 ^3/uL (0-0.2) Nucleated Red Blood Cells 0.1 % Urine Color Yellow (Yellow) Urine Clarity Clear (Clear) Urine pH 6.0 (5.0-9.0) Urine Specific [place] 1.026 (1.001-1.035) Urine Protein Negative (Negative) Urine Ketones Negative (Negative) Urine Blood 3+ /uL (Negative) Urine Nitrite Negative (Negative) Urine Bilirubin Negative (Negative) Urine Urobilinogen Normal mg/dL (Negative) Urine Leukocyte Esterase 1+ /uL (Negative) Urine RBC 50 /hpf (0 - 4) Urine Microscopic WBC 3 /HPF (0-5) Urine Squamous Epithelial Cells Few /hpf (<5) Urine Bacteria None seen /hpf (None Seen) Urine Mucus Few (None Seen) Urine Glucose Normal mg/dL (Normal) Urine Test Negative (Negative) Lipase 33 U/L (12-53) Other Laboratory Tests 02/16/25 04:35 02/15/25 05:25 Brief Hx & Hospital Course: 59-year-old female with no significant past medical history initially presented to the hospital with the abdominal pain nausea vomiting found to have acute cholecystitis. Patient was seen by General surgery has been as GI. Patient underwent lap cholecystectomy. Postoperatively patient did fairly well besides her liver function trended up. MRCP was done which shows no evidence of any choledocholithiasis. GI and General surgery cleared the patient to be discharged. Patient is being discharged under stable condition. Condition at Discharge: Stable Final Diagnosis/Problems List 1.Acute cholecystitis status post lap cholecystectomy 2. Transaminitis improving, MRCP is negative Discharge Disposition: Home SNF Discharge Will this Physician continue t: No Discharge Instruct/Medications Diet: Regular Activity: Light activity Activity comment: As tolerated Follow Up/Referral: Of the PCP in 1-2 weeks, with repeat liver function tests follow up with General surgery in 1 week Follow up with GI in 1-2 weeks with repeat LFT Medications: Resume home medications. Continued Medications: Acetaminophen (Acetaminophen Extra Stren) 500 Mg Tab 500 MG PO TID for 5 Days, #15 TAB Dicyclomine Hcl (Bentyl Capsule) 10 Mg Cp 1 CAP PO Q6HPRN for 60 Days, #100 CAP 3 Refills Metoclopramide Hcl (Reglan) 10 Mg Tab 10 MG PO BID for 5 Days, #10 TAB Sulfamethoxazole W/Trimethopri (Bactrim Ds Tablet) 1 Tab Tb 1 TAB PO BID for 7 Days, #14 TAB Discontinued Medications: Naproxen (Naproxen) 375 Mg Tab 375 MG PO TID for 5 Days, #15 TAB Scheduled Acetaminophen (Acetaminophen Extra Stren), 500 MG PO TID Dicyclomine Hcl (Bentyl Capsule), 1 CAP PO Q6HPRN Metoclopramide Hcl (Reglan), 10 MG PO BID Sulfamethoxazole W/Trimethopri (Bactrim Ds Tablet), 1 TAB PO BID Discontinued Medications Naproxen (Naproxen), 375 MG PO TID Discharge Statement: "Patient was advised to return to the ER or call 911 if any headaches, dizziness, shortness of breath, chest pain, abdominal pain, bleeding, fevers, or worsening of medical condition. Patient was counseled about treatment plan, medications, possible side effects, patientverbalized understanding. All questions were answered to the best of my ability. This discharge took greater then 30 minutes in planning, reviewing documentation, counseling the patient, and discussing with other team members." ASSESSMENT ASSESSMENT Assessment 1.Acute cholecystitis status post lap cholecystectomy 2. Transaminitis improving, MRCP is negative Date of Service: Feb 16, 2025 Billing Provider: VIKTORIA HUGHES MD Common Visit Codes: [id number] DISCH DAY >30min VIKTORIA HUGHES MD Feb 16, 2025 16:42
--- NOTE | 2025-02-16 17:10 | DVHPN2 ---
Progress Note Date Seen: Feb 16, 2025 Resident Creating Document: ELGIN BOWDEN RESIDENT Has the PT tested + for MRSA If YES, has PT been informed?: No Medical Necessity Reason Pt with a Central, PICC or Fol: No Subjective Review of Systems 02/16/25 The patient is a 29-year-old female with a history of GERD and fatty liver, now postoperative day 3 following laparoscopic cholecystectomy for acute cholecystitis. She was examined at bedside this morning. She reports improved nausea and has been tolerating full liquid diet, advancing to solids without significant difficulty. Pain is well controlled with PRN Oil Trough and acetaminophen. She denies vomiting, hematemesis, melena, diarrhea, or jaundice. She has been ambulating well, urination is normal, and she continues to use incentive spirometry. No fever or chills. Brief Gist of Todays Progress * Persistent nausea noted on previous days has significantly improved. * Patient is tolerating oral intake with full liquid diet advanced to solids as tolerated. * Liver enzymes (AST, ALT) have trended down from previous peaks (AST 239 ? 84, ALT 292 ? 220). * MRCP/MRI confirmed no bile duct obstruction or choledocholithiasis. * 6 mm T2-bright liver lesion notedrequires outpatient multiphasic MRI for further evaluation. * On Ceftriaxone IV and Enoxaparin SQ for prophylaxis. * Clinically stable for discharge today with outpatient GI follow-up arranged. ROS * Constitutional: No fever, chills, or weight loss. * GI: No abdominal pain, nausea improved, tolerating diet. No vomiting, hematemesis, melena, or diarrhea. * : Normal urination. * Other systems: Negative Objective vital signs Vital Sign Date Time Temp Pulse Resp B/P (MAP) Pulse Ox O2 Delivery O2 Flow Rate FiO2 02/16/25 13:00 98.4 66 18 114/74 (87) 98 98.4 02/16/25 08:00 Room Air* 0 21 Total Intake and Output 02/15/25 02/15/25 02/16/25 15:00 23:00 07:00 Intake Total 50 ml 1650 ml 850 ml Balance 50 ml 1650 ml 850 ml medications Current Medications Medications Dose Ordered Sig/Tabitha Route Start Time Stop Time Status Last Admin Dose Admin Pantoprazole Sodium 40 mg DAILY IV 02/13/25 10:00 02/16/25 09:53 40 MG Sodium Chloride 10 ml Q8HR IV 02/12/25 14:00 02/16/25 06:21 10 ML Ondansetron HCl 4 mg Q4HP PRN IV 02/12/25 06:15 02/14/25 03:26 4 MG Docusate Sodium 100 mg BIDPRN PRN PO 02/12/25 06:15 Acetaminophen 650 mg Q6HP PRN PO 02/12/25 06:15 Morphine Sulfate 2 mg Q4HPRN PRN IV 02/12/25 06:15 02/14/25 20:04 2 MG Nitroglycerin 0.4 mg Q5MINP PRN SL 02/12/25 06:15 Morphine Sulfate 2 mg Q30M PRN IV 02/12/25 06:15 Ceftriaxone Sodium 50 ml @ 100 mls/hr DAILY@09 IV 02/13/25 09:00 02/16/25 09:52 100 MLS/HR Sodium Chloride 1,000 ml @ 75 mls/hr [id number] IV 02/14/25 09:30 02/16/25 06:21 75 MLS/HR Enoxaparin Sodium 40 mg DAILY SC 02/16/25 10:00 02/16/25 09:53 40 MG Examination * General: Alert, oriented, no acute distress. * CVS: Regular rate and rhythm. * Respiratory: Breath sounds clear bilaterally. * Abdomen: Soft, non-distended, minimal tenderness at incision sites, bowel sounds normal. No guarding, no rebound. * Skin: Incision sites clean, dry, intact. No jaundice. * Extremities: No edema. laboratory and microbiology Laboratory Tests 02/16/25 04:35 02/15/25 05:25 Test 02/16/25 04:35 Range/Units Serum Glucose 107 H 74-106 mg/dL Microbiology Date/Time Source Procedure Growth Status 02/12/25 04:06 Voided Urine Urine Culture - Final Complete Problem List/Assessment/Plan Problem List/Assessment/Plan Assessment 1. Status post laparoscopic cholecystectomy (POD#3) recovering well, nausea improved, tolerating diet, stable for discharge. 2. Postoperative transaminitis previously elevated, now trending downward, consistent with postoperative changes. 3. 6 mm T2-bright hepatic lesion requires outpatient follow-up with multiphasic MRI. 4. GERD chronic, stable; to be addressed outpatient. 5. Fatty liver requires outpatient counseling and monitoring. Plan Gastrointestinal * No further inpatient GI interventions required. * Advance to regular diet as tolerated. * Continue antiemetics (Ondansetron) PRN until nausea completely resolves. * Continue oral PPI (Pantoprazole) upon discharge. * No need for inpatient EGD; outpatient EGD if GERD symptoms persist. Liver * LFTs improving; repeat CMP outpatient in 12 weeks. * Outpatient multiphasic MRI abdomen with and without contrast to evaluate hepatic lesion. * Lifestyle counseling for fatty liver. Postoperative Care * Follow surgical discharge instructions. * Pain control with oral medications as prescribed. * Encourage ambulation and use of incentive spirometry. Follow-Up * Outpatient GI clinic appointment in 4 weeks. * Outpatient labs: repeat LFTs at follow-up. * MRI abdomen scheduled as outpatient. Case discussed in detail with the attending physician, including the clinical presentation, diagnostic workup, and comprehensive management plan. The patient was present for the discussion and demonstrated understanding of her condition and the proposed plan. Plan discussed with: Patient ELGIN BOWDEN RESIDENT Feb 16, 2025 17:10
[2025-02-16 17:55] VITALS: TEMP 36.9
== END 2025-02-16 19:00 | disposition home or self-care (01) | DRG 263 ==
LOC: ER 02:59 → EEVIPCON 02:59 → OVERFLOW 06:04 → WEST WING 11:06
PROVIDERS: ADMIT Internal Medicine; ATTEND Internal Medicine
PROC: 0FT44ZZ Resection of Gallbladder, Percutaneous Endoscopic Approach (ICD-10-PCS; principal; 2025-02-13 16:14)
DX: K80.00 Calculus of gallbladder with acute cholecystitis without obstruction (principal); K76.0 Fatty (change of) liver, not elsewhere classified; E66.01 Morbid (severe) obesity due to excess calories; Z68.38 Body mass index [BMI] 38.0-38.9, adult; K21.9 Gastro-esophageal reflux disease without esophagitis; N39.0 Urinary tract infection, site not specified; M41.9 Scoliosis, unspecified; Z90.49 Acquired absence of other specified parts of digestive tract; Z83.3 Family history of diabetes mellitus; Z82.49 Family history of ischemic heart disease and other diseases of the circulatory system
CPT/HCPCS: 36415; 74181; 76705; 80048; 80053; 81001; 81025; 83690; 85025; 87086; G0378; J0131; J0330; J2405; J2470; J2543